=== PATIENT | male | born 1955 | race Caucasian/White ===

== ENCOUNTER 2018-03-08 15:03 | Observation (INO) ==
[2018-03-08] MEDS ORDERED: methylPREDNISolone 125 MG/2 ML VIAL IVP ONE (16:00)
[2018-03-08] MEDS ORDERED: Ipratropium/Albuterol Neb 3 ML IH ONE (16:00)
--- NOTE | 2018-03-08 16:00 | Emergency Department Note ---
Disposition Clinical Impression: Hypoxemia, Acute exacerbation of chronic obstructive airways disease, Community acquired pneumonia Disposition: Admitted As Inpatient Referrals: Malina Bauer MD [Primary Care Provider] - Forms: ED Satisfaction Letter General Adult HPI - General Chief complaint: ED Shortness of Breath/Dyspnea Stated complaint: WILMER Time Seen by Provider: 03/08/18 15:41 Source: patient, family - History of Present Illness HPI Narrative: 63-year-old male reports emergency department complaining of shortness of breath. Progressive dyspnea on exertion is noted, he has had discolored sputum and a significant cough. The patient has history of coronary disease with stents as well as COPD, he does not usually require oxygen. He denies any history of CHF DVT PE or cancer. No leg swelling or pain or syncope. No coughing up blood. There is no history of confusion or abdominal pain. No back pain. No trouble walking talking hearing seeing or speaking. The patient describes increasing shortness of breath with coughing over the last few days. On ED arrival, the patient's saturations are 86% on room air. At home he has no oxygen requirement. The patient denies any chest pain. Pain Scale: 0 - Related Data Home Medications Medication Instructions Recorded Confirmed Albuterol Inhaler 05/01/15 05/01/15 Previous Rx's Medication Instructions Recorded Benzonatate [Tessalon] 200 mg PO TID PRN #30 capsule 05/01/15 GuaiFENesin ER [Mucinex] 1,200 mg PO BID #20 tbbp.12hr 05/01/15 cephALEXin [Keflex] 500 mg PO QID #40 capsule 05/01/15 predniSONE [Prednisone] 60 mg PO DAILY 5 Days tablet 05/01/15 Allergies Allergy/AdvReac Type Severity Reaction Status Date / Time Sulfa (Sulfonamide Allergy Swelling Verified 12/18/15 10:55 Antibiotics) of Lip/Tongue/Throat All systems ED: reviewed and negative except as stated. Past Medical History - Past Medical History Medical history: Reports: COPD, coronary artery disease, hepatitis, hyperlipidemia, hypertension Surgical history: Reports: other Psychiatric history: Reports: no psych history - Social History Smoking Status: Current every day smoker Smokeless Tobacco Status: No Alcohol use: Reports: none Drug use: Reports: marijuana Physical Exam - General Limitations: no limitations General appearance: alert, in no apparent distress - Head Head exam: atraumatic, normocephalic, normal inspection - Eye Eye exam: Present: normal appearance, PERRL, EOMI - ENT ENT exam: normal exam, normal oropharynx, mucous membranes moist, TM's normal bilaterally, normal external ear exam - Neck Neck exam: Present: full ROM, trachea midline - Chest Chest inspection: Present: normal inspection, symmetric chest wall rise - Respiratory Respiratory exam: Present: wheezes, prolonged expiratory phase. Absent: respiratory distress - Cardiovascular Cardiovascular exam: Present: regular rate, normal rhythm, normal heart sounds - Abdominal Exam Abdominal exam: Present: soft, Non-Tender, normal bowel sounds. Absent: tenderness, distention, guarding, rebound, rigidity - Extremities Exam Extremities exam: Present: normal inspection, full ROM. Absent: tenderness, pedal edema, joint swelling, calf tenderness - Expanded Lower Extremity Exam Lower leg exam: Absent: Homans' sign Neurovascular/Tendon exam: Present: normal capillary refill. Absent: motor deficit, sensory deficit, tendon deficit, extremity cold to touch, pallor - Back Exam Back exam: Present: normal inspection, full ROM, CVA tenderness (R), CVA tenderness (L). Absent: tenderness, vertebral tenderness - Neurological Exam Neurological exam: Present: alert, oriented X3, CN II-XII intact. Absent: motor sensory deficit - Psychiatric Psychiatric exam: Present: normal affect, normal mood - Skin Skin exam: Present: warm, dry, intact, normal color. Absent: rash, cyanosis, d iaphoresis, erythema, pallor, mottled Course Vital Signs Temperature 97.9 F 03/08/18 15:05 Pulse Rate 62 03/08/18 15:05 Respiratory Rate 22 03/08/18 15:05 Blood Pressure 165/76 03/08/18 15:05 O2 Sat by Pulse Oximetry 86 03/08/18 15:05 Temperature 97.9 F 03/08/18 15:45 Pulse Rate 70 03/08/18 20:00 Respiratory Rate 20 03/08/18 20:00 Blood Pressure 143/97 03/08/18 20:00 O2 Sat by Pulse Oximetry 94 03/08/18 20:00 Oxygen Delivery Oxygen Delivery Nasal Cannula Medical Decision Making - MDM Narrative Medical decision making narrative: The patient has a history of COPD but does not usually require oxygen. His oxygen saturations in the emergency department when the 80s. Oxygen was supplied. He was evaluated and chest x-ray shows changes suggestive of pneumonia. The patient does not have an elevated lactate or white count, he does not appear to meet sepsis criteria. IV access was established. DuoNeb nebs were given as well as Solu-Medrol Levaquin. The patient desats when oxygen is removed into the 80s. Based on his history of lung disease, apparent hypoxemia requiring oxygen, and infiltrative change on the chest x-ray, I thought it be appropriate to the patient. The patient is agreeable. I discussed case with the hospitalist on-call who has excepted the patient to their care. Influenza testing negative. The patient denies any chest pain. He has no history of DVT. No history of DVT PE or cancer but describes a history of coronary stent, no history of CHF. Troponin negative EKG shows no acute changes. - Lab Data Lab results reviewed: Yes I reviewed the patient's lab results. Result diagrams: 03/08/18 15:54 03/08/18 15:54 Lab Results 03/08/18 03/08/18 03/08/18 Range/Units 15:54 15:54 15:54 WBC 9.7 (4.3-11.1) K/mcL RBC 4.90 (4.19-5.50) M/mcL Hgb 15.6 (12.9-16.9) g/dL Hct 45.2 (37.5-50.1) % MCV 92.2 (83.0-100.0) fL MCH 31.8 (28.0-33.3) pg MCHC 34.5 (31.6-35.5) g/dL RDW 13.5 (11.5-14.5) % Plt Count 138 L (140-400) K/mcL MPV 11.4 (9.4-12.4) fL Immature Gran % 0.3 (0-4) % Seg Neutrophils % 73.8 % Lymphocytes % 11.4 % Monocytes % 12.3 % Eosinophils % 1.9 % Basophils % 0.3 % Neutrophils # 7.2 (1.6-8.9) K/mcL Lymphocytes # 1.1 (0.6-4.6) K/mcL Monocytes # 1.2 (0.0-1.3) K/mcL Eosinophils # 0.2 (0.0-0.6) K/mcL Basophils # 0.0 (0.0-0.2) K/mcL PT (9.4-12.1) Seconds INR APTT (26.0-36.0) Seconds Sodium 137 (136-145) mEq/L Potassium 3.5 (3.5-5.1) mEq/L Chloride 98 (98-107) mEq/L Carbon Dioxide 29 (23-29) mEq/L BUN 19 (8-23) mg/dL Creatinine 0.80 (0.70-1.30) mg/dL Est GFR ( Amer) > 60 (> 60) Est GFR (Non-Af Amer) > 60 (> 60) BUN/Creatinine Ratio 24 (6-26) Glucose 89 (70-105) mg/dL Calculated Osmolality 286 (280-300) Lactic Acid 0.8 (0.5-2.2) mmol/L Calcium 9.9 (8.6-10.3) mg/dL Total Bilirubin 1.0 (0.3-1.0) mg/dL Direct Bilirubin 0.3 H (0.0-0.2) mg/dL Indirect Bilirubin 0.7 (0.0-1.2) mg/dL AST 28 (13-39) Units/L ALT 23 (7-52) Units/L Alkaline Phosphatase 121 H (34-104) Units/L Troponin I < 0.03 (< 0.04) ng/mL B-Natriuretic Peptide (Less than 100) pg/mL Serum Total Protein 7.8 (6.4-8.9) g/dL Albumin 4.2 (3.5-5.7) g/dL Globulin 3.6 H (2.4-3.5) g/dL Albumin/Globulin Ratio 1.2 (1.1-2.2) 03/08/18 03/08/18 Range/Units 15:54 15:54 WBC (4.3-11.1) K/mcL RBC (4.19-5.50) M/mcL Hgb (12.9-16.9) g/dL Hct (37.5-50.1) % MCV (83.0-100.0) fL MCH (28.0-33.3) pg MCHC (31.6-35.5) g/dL RDW (11.5-14.5) % Plt Count (140-400) K/mcL MPV (9.4-12.4) fL Immature Gran % (0-4) % Seg Neutrophils % % Lymphocytes % % Monocytes % % Eosinophils % % Basophils % % Neutrophils # (1.6-8.9) K/mcL Lymphocytes # (0.6-4.6) K/mcL Monocytes # (0.0-1.3) K/mcL Eosinophils # (0.0-0.6) K/mcL Basophils # (0.0-0.2) K/mcL PT 11.8 (9.4-12.1) Seconds INR 1.0 APTT 32.5 (26.0-36.0) Seconds Sodium (136-145) mEq/L Potassium (3.5-5.1) mEq/L Chloride (98-107) mEq/L Carbon Dioxide (23-29) mEq/L BUN (8-23) mg/dL Creatinine (0.70-1.30) mg/dL Est GFR ( Amer) (> 60) Est GFR (Non-Af Amer) (> 60) BUN/Creatinine Ratio (6-26) Glucose (70-105) mg/dL Calculated Osmolality (280-300) Lactic Acid (0.5-2.2) mmol/L Calcium (8.6-10.3) mg/dL Total Bilirubin (0.3-1.0) mg/dL Direct Bilirubin (0.0-0.2) mg/dL Indirect Bilirubin (0.0-1.2) mg/dL AST (13-39) Units/L ALT (7-52) Units/L Alkaline Phosphatase (34-104) Units/L Troponin I (< 0.04) ng/mL B-Natriuretic Peptide 144 H (Less than 100) pg/mL Serum Total Protein (6.4-8.9) g/dL Albumin (3.5-5.7) g/dL Globulin (2.4-3.5) g/dL Albumin/Globulin Ratio (1.1-2.2) - Radiology Data Radiology results reviewed: Yes I reviewed the patient's radiology results.
[2018-03-08 16:20] LABS: Basophils % 0.3 %; Eosinophils # 0.2 K/mcL (0.0-0.6); Eosinophils % 1.9 %; Hematocrit 45.2 % (37.5-50.1); Hemoglobin 15.6 g/dL (12.9-16.9); Immature Granulocytes % 0.3 % (0-4); Lymphocytes # 1.1 K/mcL (0.6-4.6); Lymphocytes % 11.4 %; Mean Corpuscular HGB Conc 34.5 g/dL (31.6-35.5); Mean Corpuscular Hemoglobin 31.8 pg (28.0-33.3); Mean Corpuscular Volume 92.2 fL (83.0-100.0); Mean Platelet Volume 11.4 fL (9.4-12.4); Monocytes # 1.2 K/mcL (0.0-1.3); Monocytes % 12.3 %; Neutrophils # 7.2 K/mcL (1.6-8.9); Platelet Count 138 K/mcL (140-400); Red Cell Distribution Width 13.5 % (11.5-14.5); Segmented Neutrophils % 73.8 %
[2018-03-08 16:27] LABS: Prothrombin Time 11.8 Seconds (9.4-12.1)
[2018-03-08 16:30] LABS: Activated Partial Thrombo Time 32.5 Seconds (26.0-36.0)
[2018-03-08 16:32] LABS: Troponin I < 0.03 ng/mL (< 0.04)
[2018-03-08 16:33] LABS: Alanine Aminotransferase 23 Units/L (7-52); Albumin 4.2 g/dL (3.5-5.7); Albumin/Globulin Ratio 1.2 (1.1-2.2); Alkaline Phosphatase 121 Units/L (34-104); Aspartate Amino Transferase 28 Units/L (13-39); BUN/Creatinine Ratio 24 (6-26); Bilirubin,Direct 0.3 mg/dL (0.0-0.2); Bilirubin,Indirect 0.7 mg/dL (0.0-1.2); Blood Urea Nitrogen 19 mg/dL (8-23); Calcium 9.9 mg/dL (8.6-10.3); Carbon Dioxide 29 mEq/L (23-29); Chloride 98 mEq/L (98-107); Globulin 3.6 g/dL (2.4-3.5); Glucose 89 mg/dL (70-105); Osmolality,Calculated 286 (280-300); Potassium 3.5 mEq/L (3.5-5.1); Sodium 137 mEq/L (136-145); Total Protein 7.8 g/dL (6.4-8.9); eGFR For Non-African Americans > 60 (> 60)
[2018-03-08] MEDS ORDERED: Levofloxacin 750 MG/150 ML 750 MG/150 ML BAG IVPB ONE (18:04)
[2018-03-08] MEDS: Nicotine 21 MG PATCH.TD24 TD SCH (20:55)
[2018-03-08] MEDS: *HR* Heparin 5,000 UNIT/ML VIAL SQ SCH (21:52)
[2018-03-08 21:53] LABS: ABG Base Excess 6 mEq/L (-2 to 3); ABG HCO3 31 mEq/L (21-27); ABG Oxygen Saturation 90 % (95-98); ABG PCO2 49 mmHg (35-45); ABG PH 7.41 pH Units (7.32-7.45); ABG PO2 60 mmHg (85-104); ABG TCO2 33 mEq/L (20-26)
--- NOTE | 2018-03-08 23:18 | Internal Med History&Physical ---
Date of Encounter: 03/08/18 Time of Encounter: 23:17 Internal Medicine - H&P: HPI Chief complaint: sob Admitted From: Home Plans for Post Hospital Care: Home History of present illness: Star Guallpa is a 63-year-old man who reports a history of COPD, hypertension and coronary artery disease with stent placement who comes to the emergency room complaining of increasing shortness of breath and dyspnea on exe rtion, cough productive of discolored sputum and chest discomfort. He denies a history of heart failure, DVT/PE and hemoptysis. No associated abdominal pain. No fever reported but did have some chills of recent. In the ER he was found to be hypoxic and required supplemental oxygen. His lab work was grossly unremarkable with negative influenza swab and was given nebulizer therapy as well as steroids. Chest x-ray is reviewed by me showed some mild patchy densities. He is admitted for further care. At this time he reports feeling much better and has no complaints. Past Med Surg Social Fam HX - Past Medical History Medical history: COPD, coronary artery disease, hepatitis, hyperlipidemia, hypertension Additional medical history: sleep apnea, fatigue, insomnia, hepatitis C, butts's esophagus Psychiatric history: no psych history - Past Surgical History Surgical History: other Additional surgical history: nap[place]on fundoplication, cardiac stent X 1 - Social History Smoking Status: Current every day smoker Packs per day: 1 Smokeless Tobacco Status: No Alcohol use: none Drug use: marijuana Internal Medicine - H&P: Meds Albuterol Inhaler 05/01/15 [History] Benzonatate [Tessalon] 200 mg PO TID PRN #30 capsule 05/01/15 [Rx] GuaiFENesin ER [Mucinex] 1,200 mg PO BID #20 tbbp.12hr 05/01/15 [Rx] cephALEXin [Keflex] 500 mg PO QID #40 capsule 05/01/15 [Rx] predniSONE [Prednisone] 60 mg PO DAILY 5 Days tablet 05/01/15 [Rx] Allergy/AdvReac Type Severity Reaction Status Date / Time Sulfa (Sulfonamide Allergy Swelling Verified 12/18/15 10:55 Antibiotics) of Lip/Tongue/Throat All Systems PM: A 10-system review of systems was performed and is negative for pertinent findings except as documented above in the HPI. Family History reviewed and found noncontributory. - Constitutional Vitals: Temp Pulse Resp BP Pulse Ox 98.3 F 68 17 146/75 92 03/08/18 21:26 03/08/18 21:26 03/08/18 21:26 03/08/18 21:26 03/08/18 21:26 Exam: Vitals: Reviewed General: Well-developed male sitting up in bed in no acute distress Skin: Warm and supple. HEENT: Moist mucous membranes. No conjunctivae pallor. Neck: No lymphadenopathy. No JVD. No carotid bruits. No palpable thyroid. Chest: Normal thoracic expansion. No wheezes, rales or rhonchi.. Heart: Normal S1 & S2; rhythmic. No rubs or murmurs. Abdomen: Non-distended, soft and non-tender to palpation. No peritoneal reaction. Extremities: No clubbing, cyanosis or edema. No calf tenderness. Normal distal pulses. Neurological: Awake, alert and oriented to person, place and time. No focal deficits. Psych: Affect appropriate. Internal Med - H&P Results - Labs CBC & Chem 7: 03/08/18 15:54 03/08/18 15:54 Labs: Short CBC 03/08/18 Range/Units 15:54 WBC 9.7 (4.3-11.1) K/mcL Hgb 15.6 (12.9-16.9) g/dL Hct 45.2 (37.5-50.1) % Plt Count 138 L (140-400) K/mcL Neutrophils # 7.2 (1.6-8.9) K/mcL BMP 03/08/18 15:54 Sodium 137 Potassium 3.5 Chloride 98 Carbon Dioxide 29 BUN 19 Creatinine 0.80 Glucose 89 Calcium 9.9 Cardiac Enzymes 03/08/18 Range/Units 15:54 Troponin I < 0.03 (< 0.04) ng/mL Liver Function 03/08/18 Range/Units 15:54 Total Bilirubin 1.0 (0.3-1.0) mg/dL Direct Bilirubin 0.3 H (0.0-0.2) mg/dL AST 28 (13-39) Units/L ALT 23 (7-52) Units/L Alkaline Phosphatase 121 H (34-104) Units/L Albumin 4.2 (3.5-5.7) g/dL - ABG Interpretation ABG results: 03/08/18 21:47 ABG pH 7.41 ABG pCO2 49 H ABG pO2 60 L ABG HCO3 31 H ABG Total CO2 33 H ABG O2 Saturation 90 L ABG Base Excess 6 H - Impressions ITS Impressions Chest X-Ray 03/08/18 15:16 IMPRESSION: Small patchy left basilar opacities, which could represent atelectasis or developing pneumonia. D/ / Ramone Russell MD / Ramone Russell MD Interpreting Provider: Ramone Russell MD - Assessment and plan (1) Acute exacerbation of chronic obstructive airways disease Current Visit: Yes Status: Acute Assessment and plan: Will place on standing nebulizer therapy. Continue steroids. Pulse oximetry and supplemental oxygen as needed. (2) Community acquired pneumonia Current Visit: Yes Status: Acute Assessment and plan: Will continue levofloxacin 500mg daily. Sputum culture ordered. Qualifiers: Laterality: left Lung location: unspecified part of lung Qualified Code(s): J18.9 - Pneumonia, unspecified organism (3) Hypoxemia Current Visit: Yes Status: Acute Assessment and plan: Secondary to COPD and PNA. Management as indicated above. (4) CAD (coronary artery disease) Current Visit: Yes Status: Acute Assessment and plan: Currently asymptomatic. Will continue home medications once reconciled. Qualifiers: Coronary Disease-Associated Artery/Lesion type: [place] artery [place] vs. transplanted heart: [place] heart Associated angina: without angina Qualified Code(s): I25.10 - Atherosclerotic heart disease of [place] coronary artery without angina pectoris (5) HTN (hypertension) Current Visit: Yes Status: Acute Assessment and plan: Currently well controlled. Will resume home oral agents once confirmed. Qualifiers: Hypertension type: essential hypertension Qualified Code(s): I10 - Essential (primary) hypertension (6) DVT prophylaxis Current Visit: Yes Status: Acute Assessment and plan: SubQ heparin ordered. - Time Spent With Patient Total time spent is greater than 50% in coordination of care (as documented) at patient's floor/unit and/or counseling patient: Greater than 35 minutes
[2018-03-08] MEDS: Ipratropium/Albuterol Neb 3 ML IH SCH (23:50)
[2018-03-09] MEDS: Ipratropium/Albuterol Neb 3 ML IH SCH ×6 (03:47→23:35)
[2018-03-09] MEDS: *HR* Heparin 5,000 UNIT/ML VIAL SQ SCH ×3 (06:55→21:33)
[2018-03-09] MEDS: Metoprolol 100 MG TABLET PO SCH ×2 (08:33→21:30)
[2018-03-09] MEDS: Nicotine 21 MG PATCH.TD24 TD SCH (08:33)
[2018-03-09] MEDS: amLODIPine 5 MG TABLET PO SCH (08:33)
[2018-03-09] MEDS: Lisinopril-HCTZ 20-12.5mg TABLET PO SCH (08:33)
[2018-03-09] MEDS ORDERED: predniSONE 20 MG TABLET PO SCH (09:00)
[2018-03-09] MEDS: MethylPREDNISolone 40 MG/ML VIAL IVP SCH ×2 (15:00→23:22)
[2018-03-09] MEDS: Levofloxacin 750 MG/150 ML 750 MG/150 ML BAG IVPB SCH (17:18)
--- NOTE | 2018-03-09 17:33 | Electrocardiograph Report ---
[address] [address] Test Date: 2018-03-08 Pat Name: Star Guallpa Department: 104 Room: 2A Gender: M [employer] Custodian: ZAKIYA : 1955 Requested By: Reema Mir Order Number: [id number] Reading MD: Orly Benavides Measurements Intervals [place] Rate: 56 P: 59 PA: 154 QRS: 62 QRSD: 89 T: 77 QT: 449 QTc: 440 Interpretive Statements SINUS BRADYCARDIA WITH OCCASIONAL SUPRAVENTRICULAR PREMATURE COMPLEXES Electronically Signed On 03-09-2018 17:32:02 EST by Orly Benavides
[2018-03-09] MEDS ORDERED: Levofloxacin 500 MG/100 ML 500 MG/100 ML BAG IVPB SCH (18:00)
--- NOTE | 2018-03-09 18:58 | Internal Med Progress Note ---
Hospitalist Progress Note - Encounter Date of Encounter: 03/09/18 Time of Encounter: 11:00 - Subjective Interval History: Patient presented with shortness of breath and cough secondary to COPD exacerbation with community acquired pneumonia. Patient with decreased airflow this morning in addition to expiratory wheezes so will escalate oral prednisone to IV Solu-Medrol and continue dual nebs and IV Levaquin. - Exam Vitals: Temp Pulse Resp BP Pulse Ox 98 F 74 20 125/63 91 03/09/18 16:40 03/09/18 16:40 03/09/18 16:40 03/09/18 16:40 03/09/18 16:40 Exam: Gen.: Nonacute distress, alert and oriented 3 ENT: Mucosal membranes moist Respiratory: Expiratory wheezes Cardiovascular: Normal S1 and S2 regular rate rhythm no murmurs rubs or gallops Abdomen: Soft, nontender and nondistended with positive bowel sounds Extremities: No lower extremity edema Skin: Normal color - Assessment and Plan (1) Acute exacerbation of chronic obstructive airways disease Current Visit: Yes Status: Acute Assessment and Plan: Patient presented with shortness of breath and cough secondary to COPD exacerbation with community acquired pneumonia. Patient with decreased airflow this morning in addition to expiratory wheezes so will escalate oral prednisone to IV Solu-Medrol and continue dual nebs and IV Levaquin. (2) Community acquired pneumonia Current Visit: Yes Status: Acute Assessment and Plan: Continue day 2 of IV ceftriaxone and IV azithromycin as above. (3) CAD (coronary artery disease) Current Visit: Yes Status: Acute Assessment and Plan: Continue home medications (4) HTN (hypertension) Current Visit: Yes Status: Acute Assessment and Plan: Continue home medications (5) DVT prophylaxis Current Visit: Yes Status: Acute Assessment and Plan: Subcutaneous heparin - Time Spent with Patient Total time spent is greater than 50% in coordination of care (as documented) at patient's floor/unit and/or counseling patient: Internal Medicine: Result - Labs CBC & Chem 7: 03/08/18 15:54 03/08/18 15:54 - ABG Interpretation ABG results: ABG ABG pH 7.41 pH Units (7.32-7.45) 03/08/18 21:47 ABG pCO2 49 mmHg (35-45) H 03/08/18 21:47 ABG pO2 60 mmHg (85-104) L 03/08/18 21:47 ABG O2 Saturation 90 % (95-98) L 03/08/18 21:47 PT/INR, D-dimer PT 11.8 Seconds (9.4-12.1) 03/08/18 15:54 Consult Discharge Plan - Plan Referrals: Malina Bauer MD [Primary Care Provider] - (2) Community acquired pneumonia Qualifiers: Laterality: left Lung location: unspecified part of lung Qualified Code(s): J18.9 - Pneumonia, unspecified organism (3) CAD (coronary artery disease) Qualifiers: Coronary Disease-Associated Artery/Lesion type: [place] artery [place] vs. transplanted heart: [place] heart Associated angina: without angina Qualified Code(s): I25.10 - Atherosclerotic heart disease of [place] coronary artery without angina pectoris (4) HTN (hypertension) Qualifiers: Hypertension type: essential hypertension Qualified Code(s): I10 - Essential (primary) hypertension
[2018-03-09] MEDS ORDERED: Acetaminophen 325 MG TABLET PO ONE (22:34)
[2018-03-10] MEDS: Ipratropium/Albuterol Neb 3 ML IH SCH ×6 (03:30→23:27)
[2018-03-10] MEDS: *HR* Heparin 5,000 UNIT/ML VIAL SQ SCH ×3 (03:57→23:18)
[2018-03-10] MEDS: Lisinopril-HCTZ 20-12.5mg TABLET PO SCH (07:59)
[2018-03-10] MEDS: Nicotine 21 MG PATCH.TD24 TD SCH (07:59)
[2018-03-10] MEDS: amLODIPine 5 MG TABLET PO SCH (07:59)
[2018-03-10] MEDS: Metoprolol 100 MG TABLET PO SCH ×2 (07:59→20:54)
[2018-03-10] MEDS: MethylPREDNISolone 40 MG/ML VIAL IVP SCH ×3 (08:00→23:18)
--- NOTE | 2018-03-10 09:42 | Internal Med Progress Note ---
Hospitalist Progress Note - Encounter Date of Encounter: 03/10/18 Time of Encounter: 11:00 - Subjective Interval History: Patient presented with shortness of breath and cough secondary to COPD exacerbation with community acquired pneumonia. Patient requiring less O2 supplementation this morning but not able to wean off. - Exam Vitals: Temp Pulse Resp BP Pulse Ox 97.7 F 79 18 128/69 92 03/10/18 07:25 03/10/18 07:25 03/10/18 07:25 03/10/18 07:25 03/10/18 07:25 Exam: Gen.: Nonacute distress, alert and oriented 3 ENT: Mucosal membranes moist Respiratory: Expiratory wheezes Cardiovascular: Normal S1 and S2 regular rate rhythm no murmurs rubs or gallops Abdomen: Soft, nontender and nondistended with positive bowel sounds Extremities: No lower extremity edema Skin: Normal color - Assessment and Plan (1) Acute exacerbation of chronic obstructive airways disease Current Visit: Yes Status: Acute Assessment and Plan: Patient presented with shortness of breath and cough secondary to COPD exacerbation with community acquired pneumonia. Continue IV Solu-Medrol and continue dual nebs and IV Levaquin. (2) Community acquired pneumonia Current Visit: Yes Status: Acute Assessment and Plan: Continue day 3 of IV Levaquin as above (3) CAD (coronary artery disease) Current Visit: Yes Status: Acute Assessment and Plan: Continue home medications (4) HTN (hypertension) Current Visit: Yes Status: Acute Assessment and Plan: Continue home medications DVT Prophylaxis: Subcutaneous heparin - Time Spent with Patient Total time spent is greater than 50% in coordination of care (as documented) at patient's floor/unit and/or counseling patient: Internal Medicine: Result - Labs CBC & Chem 7: 03/10/18 09:47 03/10/18 09:47 - ABG Interpretation ABG results: ABG ABG pH 7.41 pH Units (7.32-7.45) 03/08/18 21:47 ABG pCO2 49 mmHg (35-45) H 03/08/18 21:47 ABG pO2 60 mmHg (85-104) L 03/08/18 21:47 ABG O2 Saturation 90 % (95-98) L 03/08/18 21:47 PT/INR, D-dimer PT 11.8 Seconds (9.4-12.1) 03/08/18 15:54 Consult Discharge Plan - Plan Referrals: Malina Bauer MD [Primary Care Provider] - (2) Community acquired pneumonia Qualifiers: Laterality: left Lung location: unspecified part of lung Qualified Code(s): J18.9 - Pneumonia, unspecified organism (3) CAD (coronary artery disease) Qualifiers: Coronary Disease-Associated Artery/Lesion type: [place] artery [place] vs. [place] heart: [place] heart Associated angina: without angina Qualified Code(s): I25.10 - Atherosclerotic heart disease of [place] coronary artery without angina pectoris (4) HTN (hypertension) Qualifiers: Hypertension type: essential hypertension Qualified Code(s): I10 - Essential (primary) hypertension
[2018-03-10 10:19] LABS: Basophils % 0.1 %; Hemoglobin 14.3 g/dL (12.9-16.9); Immature Granulocytes % 0.4 % (0-4); Lymphocytes # 0.7 K/mcL (0.6-4.6); Lymphocytes % 4.8 %; Mean Corpuscular HGB Conc 33.3 g/dL (31.6-35.5); Mean Corpuscular Hemoglobin 31.7 pg (28.0-33.3); Mean Corpuscular Volume 95.3 fL (83.0-100.0); Mean Platelet Volume 11.4 fL (9.4-12.4); Monocytes # 0.7 K/mcL (0.0-1.3); Monocytes % 5.1 %; Platelet Count 131 K/mcL (140-400); Red Blood Count 4.51 M/mcL (4.19-5.50); Red Cell Distribution Width 13.3 % (11.5-14.5); Segmented Neutrophils % 89.6 %
[2018-03-10 10:27] LABS: BUN/Creatinine Ratio 29 (6-26); Blood Urea Nitrogen 32 mg/dL (8-23); Calcium 9.1 mg/dL (8.6-10.3); Carbon Dioxide 32 mEq/L (23-29); Chloride 102 mEq/L (98-107); Glucose 321 mg/dL (70-105); Osmolality,Calculated 309 (280-300); Potassium 3.8 mEq/L (3.5-5.1); Sodium 140 mEq/L (136-145); eGFR For Non-African Americans > 60 (> 60)
[2018-03-10] MEDS: Levofloxacin 750 MG/150 ML 750 MG/150 ML BAG IVPB SCH (17:48)
[2018-03-11] MEDS: Ipratropium/Albuterol Neb 3 ML IH SCH ×4 (03:28→15:52)
[2018-03-11] MEDS: *HR* Heparin 5,000 UNIT/ML VIAL SQ SCH ×2 (06:04→15:02)
[2018-03-11] MEDS ORDERED: levoFLOXacin 750 MG TABLET PO SCH (09:00)
[2018-03-11] MEDS: Metoprolol 100 MG TABLET PO SCH (09:40)
[2018-03-11] MEDS: Lisinopril-HCTZ 20-12.5mg TABLET PO SCH (09:40)
[2018-03-11] MEDS: MethylPREDNISolone 40 MG/ML VIAL IVP SCH ×2 (09:40→15:02)
[2018-03-11] MEDS: Nicotine 21 MG PATCH.TD24 TD SCH (09:41)
[2018-03-11] MEDS: amLODIPine 5 MG TABLET PO SCH (09:41)
[2018-03-11 10:40] LABS: Basophils % 0.2 %; Hematocrit 43.7 % (37.5-50.1); Hemoglobin 14.4 g/dL (12.9-16.9); Immature Granulocytes % 0.9 % (0-4); Lymphocytes # 0.8 K/mcL (0.6-4.6); Lymphocytes % 6.6 %; Mean Corpuscular Hemoglobin 32.1 pg (28.0-33.3); Mean Corpuscular Volume 97.3 fL (83.0-100.0); Mean Platelet Volume 11.8 fL (9.4-12.4); Monocytes # 0.7 K/mcL (0.0-1.3); Monocytes % 5.9 %; Neutrophils # 10.8 K/mcL (1.6-8.9); Platelet Count 134 K/mcL (140-400); Red Blood Count 4.49 M/mcL (4.19-5.50); Red Cell Distribution Width 13.1 % (11.5-14.5); Segmented Neutrophils % 86.4 %
[2018-03-11 11:01] VITALS: BP 126/76
--- NOTE | 2018-03-11 15:09 | Discharge Summary ---
- NOTES TO OUTPATIENT PROVIDER Notes to Outpatient Provider: none Orders not resulted at time of discharge: Pending orders 03/08/18 15:54 Culture,Blood [BC] Stat Date of Encounter: 03/11/18 Time of Encounter: 11:00 - Discharge Diagnosis (1) Acute exacerbation of chronic obstructive airways disease Priority: Primary Status: Acute (2) Community acquired pneumonia Priority: Primary Status: Acute Qualifiers: Laterality: left Lung location: unspecified part of lung Qualified Code(s): J18.9 - Pneumonia, unspecified organism (3) CAD (coronary artery disease) Priority: Secondary Status: Acute Qualifiers: Coronary Disease-Associated Artery/Lesion type: [place] artery [place] vs. transplanted heart: [place] heart Associated angina: without angina Qualified Code(s): I25.10 - Atherosclerotic heart disease of [place] coronary artery without angina pectoris (4) HTN (hypertension) Priority: Secondary Status: Acute Qualifiers: Hypertension type: essential hypertension Qualified Code(s): I10 - Essential (primary) hypertension Hospital course: Patient is a 63-year-old male with past medical history significant for COPD, hypertension and coronary artery disease with stent placement who comes to the emergency room complaining of increasing shortness of breath and dyspnea on exertion, cough productive of discolored sputum and chest discomfort. Patient admitted to the hospital for COPD exacerbation and continued acquired pneumonia. The patients hospital stay his symptoms improved on IV Solu-Medrol and IV Levaquin in addition to scheduled DuoNebs. Patient will be discharged to complete a 3 day course of Levaquin in addition to a steroid taper. - Time Spent with Patient Total time spent providing and/or coordinating discharge services: Less than 30 minutes - Discharge Medications Prescriptions: levoFLOXacin [Levaquin] 750 mg PO DAILY 3 Days #3 tablet Nicotine Patch [Nicoderm] 21 mg TD DAILY #30 patch.td24 predniSONE [PredniSONE] 10 mg PO DAILY #39 tablet Home Medications: Metoprolol [Lopressor] 100 mg PO BID 03/09/18 [History] Sertraline [Zoloft] 150 mg PO DAILY 03/09/18 [History] Simvastatin [Zocor] 40 mg PO HS 03/09/18 [History] amLODIPine [Norvasc] 10 mg PO DAILY 03/09/18 [History] Albuterol Sulfate [Ventolin Hfa] 2 puff IH Q6H PRN 03/10/18 [History] Aspirin [Lo-Dose Aspirin EC] 81 mg PO DAILY 03/10/18 [History] Clopidogrel [Plavix] 75 mg PO DAILY 03/10/18 [History] Lisinopril/Hydrochlorothiazide [Zestoretic 20-25 mg Tablet] 1 tab PO DAILY 03/10/18 [History] Nicotine Patch [Nicoderm] 21 mg TD DAILY #30 patch.td24 03/11/18 [Rx] levoFLOXacin [Levaquin] 750 mg PO DAILY 3 Days #3 tablet 03/11/18 [Rx] predniSONE [PredniSONE] 10 mg PO DAILY #39 tablet 03/11/18 [Rx] Allergies/Adverse Reactions: Allergy/AdvReac Type Severity Reaction Status Date / Time Sulfa (Sulfonamide Allergy Swelling Verified 12/18/15 10:55 Antibiotics) of Lip/Tongue/Throat Date of admission: 03/08/18 20:55 Primary care physician: Malina Bauer MD - Constitutional Vitals: Temp Pulse Resp BP Pulse Ox 97.8 F 81 18 126/76 94 03/11/18 11:00 03/11/18 11:00 03/11/18 11:00 03/11/18 11:00 03/11/18 11:00 Exam: Gen.: Nonacute distress, alert and oriented 3 Respiratory: Expiratory wheezes Skin: Normal color - Patient Status Disposition: Home, Self-Care - Discharge Instructions Instructions: Bronchiolitis (GEN), Chronic Obstructive Pulmonary Disease (DC) Follow Up With: Malina Bauer MD [Primary Care Provider] - 03/19/18 3:00 pm (Please follow up as schedule...)
== END 2018-03-11 17:09 | disposition home or self-care (01) ==
LOC: 2ANU 15:03 → EMEROOARM 15:03 → SUATTDRO 20:55 → 2ANU 21:24
PROVIDERS: ADMIT Internal Medicine; ATTEND Hospitalist

== ENCOUNTER 2019-05-15 18:38 | Inpatient (IN) ==
[2019-05-15] MEDS ORDERED: Acetaminophen 325 MG TABLET PO PRN (23:29)
[2019-05-15] MEDS ORDERED: Naloxone 0.4 MG/ML INJ IVP PRN (23:29)
[2019-05-15] MEDS ORDERED: Ondansetron 4 MG/2 ML VIAL IVP PRN (23:29)
[2019-05-16 00:42] LABS: Basophils % 0.1 %; Mean Platelet Volume 12.3 fL (9.4-12.4); Red Cell Distribution Width 14.1 % (11.5-14.5)
[2019-05-16 00:44] LABS: Hematocrit 38.6 % (37.5-50.1); Hemoglobin 12.2 g/dL (12.9-16.9); Immature Granulocytes % 0.9 % (0-4); Immature Platelets 6.2 % (1.1-6.1); Lymphocytes % 3.2 %; Mean Corpuscular HGB Conc 31.6 g/dL (31.6-35.5); Mean Corpuscular Hemoglobin 31.3 pg (28.0-33.3); Monocytes # 1.4 K/mcL (0.0-1.3); Segmented Neutrophils % 87.8 %; White Blood Count 17.1 K/mcL (4.3-11.1)
[2019-05-16 00:46] LABS: Lymphocytes # 0.6 K/mcL (0.6-4.6); Platelet Count 89 K/mcL (140-400)
[2019-05-16 00:50] LABS: VBG HCO3 30 mEq/L (21-27); VBG PCO2 44 mmHg (41-51); VBG PH 7.43 pH Units (7.32-7.42); VBG PO2 153 mmHg (25-50)
[2019-05-16 00:58] LABS: Red Cell Distribution Width 14.1 % (11.5-14.5)
[2019-05-16 01:00] LABS: Basophils % 0.1 %; Hematocrit 37.3 % (37.5-50.1); Hemoglobin 12.2 g/dL (12.9-16.9); Immature Granulocytes % 0.5 % (0-4); Immature Platelets 5.2 % (1.1-6.1); Lymphocytes # 0.6 K/mcL (0.6-4.6); Lymphocytes % 3.2 %; Mean Corpuscular HGB Conc 32.7 g/dL (31.6-35.5); Mean Corpuscular Hemoglobin 32.3 pg (28.0-33.3); Mean Corpuscular Volume 98.7 fL (83.0-100.0); Mean Platelet Volume 12.2 fL (9.4-12.4); Monocytes # 1.3 K/mcL (0.0-1.3); Monocytes % 7.5 %; Neutrophils # 15.6 K/mcL (1.6-8.9); Red Blood Count 3.78 M/mcL (4.19-5.50); Segmented Neutrophils % 88.7 %; White Blood Count 17.6 K/mcL (4.3-11.1)
[2019-05-16 01:01] LABS: Platelet Count 90 K/mcL (140-400)
[2019-05-16 01:06] LABS: BUN/Creatinine Ratio 24 (6-26); Blood Urea Nitrogen 25 mg/dL (8-23); Calcium 9.4 mg/dL (8.6-10.3); Carbon Dioxide 29 mEq/L (23-29); Chloride 108 mEq/L (98-107); Glucose 183 mg/dL (70-105); Magnesium 1.6 mg/dL (1.6-2.6); Osmolality,Calculated 309 (280-300); Potassium 3.7 mEq/L (3.5-5.1); Sodium 145 mEq/L (136-145); eGFR For African Americans > 60 (> 60); eGFR For Non-African Americans > 60 (> 60)
[2019-05-16 01:20] LABS: BUN/Creatinine Ratio 24 (6-26); Blood Urea Nitrogen 25 mg/dL (8-23); Calcium 9.3 mg/dL (8.6-10.3); Carbon Dioxide 29 mEq/L (23-29); Chloride 108 mEq/L (98-107); Glucose 170 mg/dL (70-105); Magnesium 1.7 mg/dL (1.6-2.6); Osmolality,Calculated 310 (280-300); Potassium 3.7 mEq/L (3.5-5.1); Sodium 146 mEq/L (136-145); eGFR For African Americans > 60 (> 60); eGFR For Non-African Americans > 60 (> 60)
[2019-05-16 01:26] LABS: Platelet Estimate Decreased (Normal)
[2019-05-16 02:26] LABS: Adenovirus Not Detected (Not Detect); Coronavirus 229E Not Detected (Not Detect); Coronavirus HKU1 Not Detected (Not Detect); Coronavirus NL63 Not Detected (Not Detect); Coronavirus OC43 Not Detected (Not Detect); Human Metapneumovirus Not Detected (Not Detect); Human Rhinovirus/Enterovirus Not Detected (Not Detect); Influenza A Subtype 2009 H1 Not Detected (Not Detect); Influenza B Not Detected (Not Detect); Parainfluenza Virus 1 Not Detected (Not Detect); Parainfluenza Virus 2 Not Detected (Not Detect); Parainfluenza Virus 3 Not Detected (Not Detect); Parainfluenza Virus 4 Not Detected (Not Detect)
[2019-05-16 02:27] LABS: Bordetella Pertussis Not Detected (Not Detect); Chlamydophila pneumoniae Not Detected (Not Detect); Mycoplasma pneumoniae Not Detected (Not Detect); Respiratory Syncytial Virus Not Detected (Not Detect)
[2019-05-16] MEDS ORDERED: Ipratropium/Albuterol Neb 3 ML IH PRN (04:27)
[2019-05-16] MEDS ORDERED: Lactulose Oral Soln 20 GM/30 ML UDC PO PRN (04:35)
[2019-05-16] MEDS ORDERED: 0.9 % Sodium Chloride 1,000 ML IVC SCH (04:45)
[2019-05-16] MEDS: *HR* Heparin 5,000 UNIT/ML VIAL SQ SCH ×3 (05:27→20:55)
[2019-05-16] MEDS: Aspirin Enteric Coated 81 MG Tablet PO SCH (07:32)
[2019-05-16] MEDS: Piperacillin/Tazobactam 3.375 GM in 0.9 % Sodium Chloride Mini Bag 100 ML IVPB SCH ×2 (07:32→15:32)
[2019-05-16] MEDS: Metoprolol 100 MG TABLET PO SCH ×2 (07:32→20:57)
[2019-05-16] MEDS: Budesonide Neb 0.5 MG/2 ML IH SCH ×2 (09:29→21:45)
[2019-05-16] MEDS: Azithromycin 500 MG in D5% in Water 250 ML IVPB SCH (11:26)
[2019-05-16] MEDS: Ipratropium/Albuterol Neb 3 ML IH SCH ×3 (11:41→21:45)
[2019-05-16] MEDS ORDERED: Aminoglycoside Consult 1 EACH MC ONE (14:44)
[2019-05-17] MEDS: Piperacillin/Tazobactam 3.375 GM in 0.9 % Sodium Chloride Mini Bag 100 ML IVPB SCH ×2 (00:33→08:58)
[2019-05-17] MEDS: Ipratropium/Albuterol Neb 3 ML IH SCH ×2 (04:21→11:16)
[2019-05-17] MEDS: *HR* Heparin 5,000 UNIT/ML VIAL SQ SCH (05:25)
[2019-05-17 06:51] LABS: Hematocrit 38.7 % (37.5-50.1); Immature Platelets 6.6 % (1.1-6.1); Mean Corpuscular Hemoglobin 30.9 pg (28.0-33.3); Mean Corpuscular Volume 99.7 fL (83.0-100.0); Mean Platelet Volume 12.1 fL (9.4-12.4); Red Blood Count 3.88 M/mcL (4.19-5.50); Red Cell Distribution Width 14.2 % (11.5-14.5); White Blood Count 9.4 K/mcL (4.3-11.1)
[2019-05-17 07:05] LABS: BUN/Creatinine Ratio 25 (6-26); Blood Urea Nitrogen 25 mg/dL (8-23); Calcium 8.7 mg/dL (8.6-10.3); Carbon Dioxide 29 mEq/L (23-29); Chloride 108 mEq/L (98-107); Glucose 129 mg/dL (70-105); Osmolality,Calculated 300 (280-300); Potassium 3.7 mEq/L (3.5-5.1); Sodium 142 mEq/L (136-145); eGFR For African Americans > 60 (> 60); eGFR For Non-African Americans > 60 (> 60)
[2019-05-17] MEDS: Metoprolol 100 MG TABLET PO SCH (09:00)
[2019-05-17] MEDS: Aspirin Enteric Coated 81 MG Tablet PO SCH (09:00)
[2019-05-17 11:08] VITALS: BP 187/96
[2019-05-17] MEDS: Budesonide Neb 0.5 MG/2 ML IH SCH (11:16)
[2019-05-17] MEDS: Azithromycin 500 MG in D5% in Water 250 ML IVPB SCH (12:57)
[2019-05-17] MEDS ORDERED: hydroCHLOROthiazide 25 MG TABLET PO SCH (13:00)
[2019-05-17] MEDS ORDERED: amLODIPine 5 MG TABLET PO SCH (13:00)
[2019-05-17] MEDS ORDERED: Lisinopril 20 MG TABLET PO SCH (13:00)
== END 2019-05-17 14:45 | disposition home or self-care (01) | DRG 720 ==
LOC: 2ANU → SUATTDRO 21:09
PROVIDERS: ADMIT Pharmacist; ATTEND Internal Medicine

== ENCOUNTER 2019-07-28 21:06 | Observation (INO) ==
[2019-07-28] MEDS ORDERED: 0.9 % Sodium Chloride 500 ML IVC ONE (21:33)
[2019-07-28 21:57] LABS: Basophils % 0.2 %; Eosinophils # 0.1 K/mcL (0.0-0.6); Eosinophils % 1.4 %; Hematocrit 35.6 % (37.5-50.1); Hemoglobin 11.2 g/dL (12.9-16.9); Immature Granulocytes % 0.5 % (0-4); Lymphocytes # 1.3 K/mcL (0.6-4.6); Lymphocytes % 13.2 %; Mean Corpuscular HGB Conc 31.5 g/dL (31.6-35.5); Mean Corpuscular Hemoglobin 30.4 pg (28.0-33.3); Mean Corpuscular Volume 96.7 fL (83.0-100.0); Monocytes # 0.8 K/mcL (0.0-1.3); Monocytes % 8.2 %; Neutrophils # 7.3 K/mcL (1.6-8.9); Platelet Count 149 K/mcL (140-400); Red Blood Count 3.68 M/mcL (4.19-5.50); Red Cell Distribution Width 14.3 % (11.5-14.5); Segmented Neutrophils % 76.5 %; White Blood Count 9.5 K/mcL (4.3-11.1)
[2019-07-28 22:09] LABS: INR 1.1; Prothrombin Time 12.3 Seconds (9.4-12.1)
[2019-07-28 22:12] LABS: Activated Partial Thrombo Time 38.5 Seconds (26.0-36.0)
[2019-07-28 22:19] LABS: Alanine Aminotransferase 37 Units/L (7-52); Albumin 4.1 g/dL (3.5-5.7); Albumin/Globulin Ratio 1.2 (1.1-2.2); Alkaline Phosphatase 103 Units/L (34-104); Aspartate Amino Transferase 55 Units/L (13-39); BUN/Creatinine Ratio 39 (6-26); Bilirubin,Direct 0.3 mg/dL (0.0-0.2); Bilirubin,Indirect 0.6 mg/dL (0.0-1.0); Bilirubin,Total 0.9 mg/dL (0.3-1.0); Blood Urea Nitrogen 51 mg/dL (8-23); Calcium 9.6 mg/dL (8.6-10.3); Carbon Dioxide 28 mEq/L (23-29); Chloride 101 mEq/L (98-107); Globulin 3.5 g/dL (2.4-3.5); Glucose 103 mg/dL (70-105); Osmolality,Calculated 308 (280-300); Potassium 3.3 mEq/L (3.5-5.1); Sodium 142 mEq/L (136-145); Total Protein 7.6 g/dL (6.4-8.9); Troponin I < 0.03 ng/mL (< 0.04); eGFR For African Americans > 60 (> 60); eGFR For Non-African Americans 55 (> 60)
[2019-07-28 22:27] LABS: Bilirubin,Urine Negative (Negative); Blood,Urine Negative (Negative); Clarity,Urine Clear (Clear); Color,Urine Yellow (Yellow); Glucose,Urine (UA) Normal (Normal); Ketones,Urine Trace mg/dL (Negative); Leukocyte Esterase,Urine Negative (Negative); Nitrite,Urine Negative (Negative); PH,Urine 5.5 pH Units (5.0-8.0); Protein,Urine 30 mg/dL (Neg-Trace); Specific Gravity,Urine 1.023 (1.010-1.025); Urobilinogen,Urine Normal (Normal)
[2019-07-28 22:29] LABS: Bacteria,Urine None Seen per hpf (None-Few); Hyaline Casts,Urine None Seen per lpf (None-Few); RBC,Urine 0-3 per hpf (0-3); Squamous Epithelial Cell,Urine Moderate per lpf (None-Few); WBC,Urine 0-3 per hpf (0-3)
[2019-07-29] MEDS ORDERED: Naloxone 0.4 MG/ML INJ IVP PRN (01:18)
[2019-07-29] MEDS ORDERED: Lactulose Oral Soln 20 GM/30 ML UDC PO PRN (01:46)
[2019-07-29 02:42] LABS: Basophils % 0.1 %; Eosinophils # 0.1 K/mcL (0.0-0.6); Eosinophils % 0.6 %; Hemoglobin 11.2 g/dL (12.9-16.9); Immature Granulocytes % 0.5 % (0-4); Lymphocytes % 10.4 %; Mean Platelet Volume 11.7 fL (9.4-12.4); Monocytes # 0.7 K/mcL (0.0-1.3); Monocytes % 7.8 %; Neutrophils # 7.5 K/mcL (1.6-8.9); Platelet Count 138 K/mcL (140-400); Red Blood Count 3.61 M/mcL (4.19-5.50); Red Cell Distribution Width 14.3 % (11.5-14.5); Segmented Neutrophils % 80.6 %; White Blood Count 9.3 K/mcL (4.3-11.1)
[2019-07-29 02:43] LABS: VBG HCO3 29 mEq/L (21-27); VBG PCO2 51 mmHg (41-51); VBG PH 7.36 pH Units (7.32-7.42); VBG PO2 58 mmHg (25-50)
[2019-07-29 03:01] LABS: Alanine Aminotransferase 35 Units/L (7-52); Albumin/Globulin Ratio 1.2 (1.1-2.2); Alkaline Phosphatase 99 Units/L (34-104); Aspartate Amino Transferase 54 Units/L (13-39); BUN/Creatinine Ratio 40 (6-26); Bilirubin,Total 0.9 mg/dL (0.3-1.0); Blood Urea Nitrogen 50 mg/dL (8-23); Calcium 9.4 mg/dL (8.6-10.3); Carbon Dioxide 27 mEq/L (23-29); Chloride 103 mEq/L (98-107); Globulin 3.3 g/dL (2.4-3.5); Glucose 110 mg/dL (70-105); Magnesium 1.9 mg/dL (1.6-2.6); Osmolality,Calculated 312 (280-300); Potassium 3.4 mEq/L (3.5-5.1); Sodium 144 mEq/L (136-145); Total Protein 7.3 g/dL (6.4-8.9); eGFR For African Americans > 60 (> 60); eGFR For Non-African Americans 58 (> 60)
[2019-07-29] MEDS: Tiotropium 18 MCG inhalation IH SCH (07:48)
[2019-07-29] MEDS: Aspirin Enteric Coated 81 MG Tablet PO SCH (08:34)
[2019-07-29] MEDS: amLODIPine 5 MG TABLET PO SCH (08:35)
[2019-07-29] MEDS ORDERED: Perflutren Lipid Microsphere 1.3 ML in 0.9 % Sodium Chloride 8.7 ML IVP ONE (12:35)
[2019-07-29] MEDS ORDERED: 0.9 % Sodium Chloride 500 ML IVC SCH (17:00)
[2019-07-29] MEDS ORDERED: *HR* Heparin 5,000 UNIT/ML VIAL SQ SCH (18:00)
[2019-07-29 20:24] LABS: Sodium, Urine 100.5 mEq/L
[2019-07-29 20:27] LABS: Amphetamine Screen,Urine Negative ng/mL (Cutoff=1000); Barbiturate Screen,Urine Negative ng/mL (Cutoff=200); Benzodiazepines Screen,Urine Positive ng/mL (Cutoff=200); Cannabinoid Screen,Urine Negative ng/mL (Cutoff = 50); Cocaine Screen,Urine Negative ng/mL (Cutoff= 300); Opiate Screen,Urine Negative ng/mL (Cutoff=300); Phencyclidine Screen,Urine Negative ng/mL (Cutoff=25)
[2019-07-30 06:40] LABS: Basophils % 0.1 %; Eosinophils % 0.4 %; Hematocrit 36.4 % (37.5-50.1); Hemoglobin 11.2 g/dL (12.9-16.9); Immature Granulocytes % 0.6 % (0-4); Lymphocytes # 0.9 K/mcL (0.6-4.6); Lymphocytes % 9.9 %; Mean Corpuscular HGB Conc 30.8 g/dL (31.6-35.5); Mean Corpuscular Volume 97.6 fL (83.0-100.0); Mean Platelet Volume 11.9 fL (9.4-12.4); Monocytes # 0.8 K/mcL (0.0-1.3); Monocytes % 8.7 %; Neutrophils # 7.3 K/mcL (1.6-8.9); Platelet Count 135 K/mcL (140-400); Red Blood Count 3.73 M/mcL (4.19-5.50); Red Cell Distribution Width 14.4 % (11.5-14.5); Segmented Neutrophils % 80.3 %; White Blood Count 9.1 K/mcL (4.3-11.1)
[2019-07-30 06:57] LABS: BUN/Creatinine Ratio 34 (6-26); Blood Urea Nitrogen 36 mg/dL (8-23); Calcium 9.4 mg/dL (8.6-10.3); Carbon Dioxide 27 mEq/L (23-29); Chloride 102 mEq/L (98-107); Glucose 133 mg/dL (70-105); Osmolality,Calculated 302 (280-300); Potassium 3.2 mEq/L (3.5-5.1); Sodium 141 mEq/L (136-145); eGFR For African Americans > 60 (> 60); eGFR For Non-African Americans > 60 (> 60)
[2019-07-30] MEDS: Tiotropium 18 MCG inhalation IH SCH (08:07)
[2019-07-30] MEDS: amLODIPine 5 MG TABLET PO SCH (08:36)
[2019-07-30] MEDS: Aspirin Enteric Coated 81 MG Tablet PO SCH (08:36)
[2019-07-30] MEDS ORDERED: 0.9 % Sodium Chloride 500 ML IVC SCH (17:30)
[2019-07-31 07:24] LABS: Eosinophils % 1.3 %; Hemoglobin 10.6 g/dL (12.9-16.9); Immature Granulocytes % 0.4 % (0-4)
[2019-07-31 07:26] LABS: Basophils % 0.3 %; Eosinophils # 0.1 K/mcL (0.0-0.6); Hematocrit 33.9 % (37.5-50.1); Immature Platelets 5.3 % (1.1-6.1); Lymphocytes # 0.8 K/mcL (0.6-4.6); Lymphocytes % 11.6 %; Mean Corpuscular HGB Conc 31.3 g/dL (31.6-35.5); Mean Corpuscular Hemoglobin 30.5 pg (28.0-33.3); Mean Corpuscular Volume 97.4 fL (83.0-100.0); Mean Platelet Volume 11.6 fL (9.4-12.4); Monocytes # 0.7 K/mcL (0.0-1.3); Monocytes % 9.4 %; Neutrophils # 5.5 K/mcL (1.6-8.9); Platelet Count 109 K/mcL (140-400); Red Blood Count 3.48 M/mcL (4.19-5.50); Red Cell Distribution Width 14.4 % (11.5-14.5); White Blood Count 7.2 K/mcL (4.3-11.1)
[2019-07-31 07:42] LABS: BUN/Creatinine Ratio 26 (6-26); Blood Urea Nitrogen 23 mg/dL (8-23); Calcium 8.9 mg/dL (8.6-10.3); Carbon Dioxide 32 mEq/L (23-29); Chloride 104 mEq/L (98-107); Glucose 127 mg/dL (70-105); Osmolality,Calculated 299 (280-300); Potassium 3.2 mEq/L (3.5-5.1); Sodium 142 mEq/L (136-145); eGFR For African Americans > 60 (> 60); eGFR For Non-African Americans > 60 (> 60)
[2019-07-31] MEDS: Aspirin Enteric Coated 81 MG Tablet PO SCH (07:58)
[2019-07-31] MEDS: amLODIPine 5 MG TABLET PO SCH (07:58)
[2019-07-31] MEDS: Tiotropium 18 MCG inhalation IH SCH (09:54)
[2019-07-31] MEDS ORDERED: *HR* Labetalol 20 MG/4 ML SYRINGE IVP ONE (23:08)
[2019-08-01] MEDS: amLODIPine 5 MG TABLET PO SCH (05:34)
[2019-08-01 07:45] LABS: Basophils % 0.2 %; Eosinophils # 0.1 K/mcL (0.0-0.6); Eosinophils % 1.4 %; Hematocrit 34.4 % (37.5-50.1); Immature Granulocytes % 0.9 % (0-4); Lymphocytes # 0.5 K/mcL (0.6-4.6); Lymphocytes % 8.3 %; Mean Corpuscular Hemoglobin 30.2 pg (28.0-33.3); Mean Corpuscular Volume 94.5 fL (83.0-100.0); Mean Platelet Volume 11.6 fL (9.4-12.4); Monocytes # 0.5 K/mcL (0.0-1.3); Monocytes % 9.2 %; Neutrophils # 4.7 K/mcL (1.6-8.9); Platelet Count 116 K/mcL (140-400); Red Blood Count 3.64 M/mcL (4.19-5.50); Red Cell Distribution Width 14.1 % (11.5-14.5); White Blood Count 5.9 K/mcL (4.3-11.1)
[2019-08-01 08:01] LABS: BUN/Creatinine Ratio 20 (6-26); Blood Urea Nitrogen 17 mg/dL (8-23); Calcium 9.3 mg/dL (8.6-10.3); Carbon Dioxide 31 mEq/L (23-29); Chloride 104 mEq/L (98-107); Glucose 113 mg/dL (70-105); Osmolality,Calculated 288 (280-300); Potassium 3.3 mEq/L (3.5-5.1); Sodium 138 mEq/L (136-145); eGFR For African Americans > 60 (> 60); eGFR For Non-African Americans > 60 (> 60)
[2019-08-01] MEDS: Tiotropium 18 MCG inhalation IH SCH (08:10)
[2019-08-01] MEDS: Aspirin Enteric Coated 81 MG Tablet PO SCH (08:13)
[2019-08-01] MEDS ORDERED: Potassium Chloride 20 MEQ, Lidocaine 1% 2 ML in 0.9 % Sodium Chloride 250 ML IVPB ONE (11:24)
[2019-08-01 14:58] VITALS: BP 152/78
== END 2019-08-01 19:01 | disposition home or self-care (01) ==
LOC: EMEROOARM 21:06 → 3BNU 21:06
PROVIDERS: ADMIT Student in an Organized Health Care Education/Training Program; ATTEND Student in an Organized Health Care Education/Training Program

== ENCOUNTER 2020-01-30 15:37 | Observation (INO) ==
[2020-01-30 16:32] LABS: Basophils % 0.2 %; Eosinophils # 0.2 K/mcL (0.0-0.6); Eosinophils % 1.6 %; Hematocrit 33.4 % (37.5-50.1); Hemoglobin 10.4 g/dL (12.9-16.9); Immature Granulocytes % 0.2 % (0-4); Lymphocytes # 0.9 K/mcL (0.6-4.6); Lymphocytes % 10.1 %; Mean Corpuscular HGB Conc 31.1 g/dL (31.6-35.5); Mean Corpuscular Hemoglobin 28.9 pg (28.0-33.3); Mean Corpuscular Volume 92.8 fL (83.0-100.0); Mean Platelet Volume 12.1 fL (9.4-12.4); Monocytes # 0.9 K/mcL (0.0-1.3); Monocytes % 9.9 %; Neutrophils # 7.1 K/mcL (1.6-8.9); Platelet Count 119 K/mcL (140-400); Red Cell Distribution Width 14.5 % (11.5-14.5); White Blood Count 9.1 K/mcL (4.3-11.1)
[2020-01-30 16:55] LABS: BUN/Creatinine Ratio 24 (6-26); Blood Urea Nitrogen 26 mg/dL (8-23); Calcium 9.6 mg/dL (8.6-10.3); Carbon Dioxide 31 mEq/L (23-29); Chloride 102 mEq/L (98-107); Glucose 120 mg/dL (70-105); Osmolality,Calculated 296 (280-300); Potassium 3.5 mEq/L (3.5-5.1); Sodium 140 mEq/L (136-145); eGFR For African Americans > 60 (> 60); eGFR For Non-African Americans > 60 (> 60)
[2020-01-30 16:56] LABS: Troponin I 0.03 ng/mL (< 0.04)
[2020-01-30] MEDS ORDERED: Ipratropium/Albuterol Neb 3 ML IH ONE (17:55)
[2020-01-30] MEDS ORDERED: 0.9 % Sodium Chloride 1,000 ML IVC ONE (17:55)
[2020-01-30] MEDS ORDERED: methylPREDNISolone 125 MG/2 ML VIAL IVP ONE (17:55)
[2020-01-30] MEDS ORDERED: cefTRIAXone 1,000 MG in Water for inj. (sterile) 10 ML IVP ONE (18:01)
[2020-01-30] MEDS ORDERED: Furosemide 40 MG/4 ML VIAL IVP ONE (18:01)
[2020-01-30] MEDS ORDERED: Azithromycin 500 MG in 0.9 % Sodium Chloride 250 ML IVPB ONE (18:01)
[2020-01-30] MEDS ORDERED: Isovue-370 500 ML BOTTLE IVP ONE (18:08)
[2020-01-30 18:36] LABS: INR 1.1; Prothrombin Time 12.6 Seconds (9.4-12.1)
[2020-01-30 18:39] LABS: Activated Partial Thrombo Time 35.9 Seconds (26.0-36.0)
[2020-01-30 18:44] LABS: Ethanol < 10 mg/dL (Less than 10)
[2020-01-30 18:45] LABS: VBG HCO3 30 mEq/L (21-27); VBG PCO2 49 mmHg (41-51); VBG PO2 163 mmHg (25-50)
[2020-01-30 19:50] LABS: Bilirubin,Urine Negative (Negative); Blood,Urine Negative (Negative); Clarity,Urine Clear (Clear); Color,Urine Colorless (Yellow); Glucose,Urine (UA) Normal (Normal); Ketones,Urine Negative (Negative); Leukocyte Esterase,Urine Negative (Negative); Nitrite,Urine Negative (Negative); PH,Urine 6.5 pH Units (5.0-8.0); Protein,Urine Negative (Neg-Trace); Specific Gravity,Urine 1.012 (1.010-1.025); Urobilinogen,Urine Normal (Normal)
[2020-01-30 20:48] LABS: Amphetamine Screen,Urine Negative ng/mL (Cutoff=1000); Barbiturate Screen,Urine Negative ng/mL (Cutoff=200); Benzodiazepines Screen,Urine Negative ng/mL (Cutoff=200); Cannabinoid Screen,Urine Positive ng/mL (Cutoff = 50); Cocaine Screen,Urine Negative ng/mL (Cutoff= 300); Opiate Screen,Urine Positive ng/mL (Cutoff=300); Phencyclidine Screen,Urine Negative ng/mL (Cutoff=25)
[2020-01-30] MEDS ORDERED: Ondansetron 4 MG/2 ML VIAL IVP PRN (21:46)
[2020-01-30] MEDS ORDERED: Naloxone 0.4 MG/ML INJ IVP PRN (21:46)
[2020-01-30] MEDS ORDERED: Acetaminophen 325 MG TABLET PO PRN (21:46)
[2020-01-30] MEDS ORDERED: Ipratropium/Albuterol Neb 3 ML IH PRN (21:47)
[2020-01-30] MEDS: Ipratropium/Albuterol Neb 3 ML IH SCH (23:36)
[2020-01-30] MEDS: Nicotine 21 MG PATCH.TD24 TD SCH (23:48)
[2020-01-30] MEDS: Metoprolol 100 MG TABLET PO SCH (23:48)
[2020-01-30] MEDS: Lactulose Oral Soln 20 GM/30 ML UDC PO SCH (23:48)
[2020-01-31 01:38] LABS: Basophils % 0.1 %; Eosinophils % 0.1 %; Hematocrit 32.2 % (37.5-50.1); Hemoglobin 9.8 g/dL (12.9-16.9); Immature Granulocytes % 0.4 % (0-4); Lymphocytes # 0.4 K/mcL (0.6-4.6); Lymphocytes % 5.8 %; Mean Corpuscular HGB Conc 30.4 g/dL (31.6-35.5); Mean Corpuscular Hemoglobin 27.8 pg (28.0-33.3); Mean Corpuscular Volume 91.2 fL (83.0-100.0); Mean Platelet Volume 12.3 fL (9.4-12.4); Monocytes # 0.1 K/mcL (0.0-1.3); Monocytes % 1.4 %; Neutrophils # 6.8 K/mcL (1.6-8.9); Platelet Count 110 K/mcL (140-400); Red Blood Count 3.53 M/mcL (4.19-5.50); Red Cell Distribution Width 14.5 % (11.5-14.5); Segmented Neutrophils % 92.2 %; White Blood Count 7.4 K/mcL (4.3-11.1)
[2020-01-31 01:47] LABS: BUN/Creatinine Ratio 22 (6-26); Blood Urea Nitrogen 25 mg/dL (8-23); Carbon Dioxide 30 mEq/L (23-29); Chloride 100 mEq/L (98-107); Glucose 194 mg/dL (70-105); Magnesium 1.8 mg/dL (1.6-2.6); Osmolality,Calculated 300 (280-300); Potassium 3.2 mEq/L (3.5-5.1); Sodium 140 mEq/L (136-145); eGFR For African Americans > 60 (> 60); eGFR For Non-African Americans > 60 (> 60)
[2020-01-31] MEDS: Ipratropium/Albuterol Neb 3 ML IH SCH ×4 (03:35→21:39)
[2020-01-31] MEDS: *HR* Enoxaparin 40 MG/0.4 ML SYRINGE SQ SCH (06:10)
[2020-01-31] MEDS: Lactulose Oral Soln 20 GM/30 ML UDC PO SCH ×3 (08:09→20:11)
[2020-01-31] MEDS: Lisinopril-HCTZ 20-12.5mg TABLET PO SCH (08:10)
[2020-01-31] MEDS: Metoprolol 100 MG TABLET PO SCH ×2 (08:10→20:11)
[2020-01-31] MEDS ORDERED: MethylPREDNISolone 40 MG/ML VIAL IVP SCH (09:00)
[2020-01-31] MEDS ORDERED: Dextrose Gel 15 GM/37.5 ML TUBE PO PRN ×2 (09:12)
[2020-01-31] MEDS ORDERED: *HR* Dextrose 50 % in Water (Vial) 50 ML VIAL IVP PRN (09:12)
[2020-01-31] MEDS ORDERED: D5% in Water 1,000 ML IVC PRN (09:12)
[2020-01-31] MEDS: Insulin LISPRO 300 UNITS/3 ML VIAL SQ SCH ×4 (09:34→20:11)
[2020-01-31 09:36] LABS: Estimated Average Glucose 163 mg/dl
[2020-01-31] MEDS: Azithromycin 500 MG in 0.9 % Sodium Chloride 250 ML IVPB SCH (09:39)
[2020-01-31 10:42] LABS: Adenovirus Not Detected (Not Detect); Bordetella Pertussis Not Detected (Not Detect); Chlamydophila pneumoniae Not Detected (Not Detect); Coronavirus 229E Not Detected (Not Detect); Coronavirus HKU1 Not Detected (Not Detect); Coronavirus NL63 Not Detected (Not Detect); Coronavirus OC43 Not Detected (Not Detect); Human Metapneumovirus Not Detected (Not Detect); Human Rhinovirus/Enterovirus Not Detected (Not Detect); Influenza A Subtype 2009 H1 Not Detected (Not Detect); Influenza B Not Detected (Not Detect); Mycoplasma pneumoniae Not Detected (Not Detect); Parainfluenza Virus 1 Not Detected (Not Detect); Parainfluenza Virus 2 Not Detected (Not Detect); Parainfluenza Virus 3 Not Detected (Not Detect); Parainfluenza Virus 4 Not Detected (Not Detect); Respiratory Syncytial Virus Not Detected (Not Detect); SARS-CoV-2 Not Detected (Not Detect)
[2020-01-31] MEDS: Tiotropium 18 MCG inhalation IH SCH (11:13)
[2020-01-31] MEDS: Nicotine 21 MG PATCH.TD24 TD SCH (22:33)
[2020-02-01 01:16] LABS: Basophils % 0.1 %; Eosinophils % 0.1 %; Lymphocytes % 6.8 %; Platelet Count 117 K/mcL (140-400)
[2020-02-01 01:18] LABS: Hematocrit 31.5 % (37.5-50.1); Hemoglobin 9.5 g/dL (12.9-16.9); Immature Granulocytes % 0.4 % (0-4); Lymphocytes # 0.8 K/mcL (0.6-4.6); Mean Corpuscular HGB Conc 30.2 g/dL (31.6-35.5); Mean Corpuscular Hemoglobin 28.5 pg (28.0-33.3); Mean Corpuscular Volume 94.6 fL (83.0-100.0); Mean Platelet Volume 12.2 fL (9.4-12.4); Monocytes # 1.3 K/mcL (0.0-1.3); Monocytes % 10.9 %; Neutrophils # 9.8 K/mcL (1.6-8.9); Red Blood Count 3.33 M/mcL (4.19-5.50); Red Cell Distribution Width 14.5 % (11.5-14.5); Segmented Neutrophils % 81.7 %
[2020-02-01 01:41] LABS: Calcium 8.8 mg/dL (8.6-10.3); Magnesium 2.3 mg/dL (1.6-2.6); Phosphorous 4.6 mg/dL (2.7-4.5); Potassium 3.7 mEq/L (3.5-5.1)
[2020-02-01 02:00] LABS: Folate 8.7 ng/mL (3.0-16.0)
[2020-02-01] MEDS: Ipratropium/Albuterol Neb 3 ML IH SCH ×4 (04:33→21:53)
[2020-02-01] MEDS: *HR* Enoxaparin 40 MG/0.4 ML SYRINGE SQ SCH (05:10)
[2020-02-01] MEDS: Lactulose Oral Soln 20 GM/30 ML UDC PO SCH ×3 (08:32→22:25)
[2020-02-01] MEDS: Metoprolol 100 MG TABLET PO SCH (08:32)
[2020-02-01] MEDS: predniSONE 20 MG TABLET PO SCH (08:32)
[2020-02-01] MEDS: Insulin LISPRO 300 UNITS/3 ML VIAL SQ SCH ×4 (08:35→22:25)
[2020-02-01] MEDS ORDERED: Iron Sucrose Complex 400 MG in 0.9 % Sodium Chloride 250 ML IVPB ONE (08:45)
[2020-02-01] MEDS: Lisinopril-HCTZ 20-12.5mg TABLET PO SCH (08:50)
[2020-02-01] MEDS: Azithromycin 500 MG in 0.9 % Sodium Chloride 250 ML IVPB SCH (08:51)
[2020-02-01] MEDS: Budesonide/Formoterol 160/4.5 1 PUFF INH IH SCH ×2 (10:10→21:53)
[2020-02-01] MEDS: Aspirin Enteric Coated 81 MG Tablet PO SCH (10:12)
[2020-02-01] MEDS: Tiotropium 18 MCG inhalation IH SCH (10:13)
[2020-02-01] MEDS ORDERED: 0.9 % Sodium Chloride 1,000 ML IVC SCH (10:30)
[2020-02-01] MEDS: Sennosides/Docusate Sodium TABLET PO SCH (22:24)
[2020-02-01] MEDS: Nicotine 21 MG PATCH.TD24 TD SCH (22:25)
[2020-02-02] MEDS: Ipratropium/Albuterol Neb 3 ML IH SCH ×2 (03:18→09:52)
[2020-02-02] MEDS: *HR* Enoxaparin 40 MG/0.4 ML SYRINGE SQ SCH (05:57)
[2020-02-02] MEDS: Insulin LISPRO 300 UNITS/3 ML VIAL SQ SCH ×2 (09:11→11:46)
[2020-02-02] MEDS: Sennosides/Docusate Sodium TABLET PO SCH (09:31)
[2020-02-02] MEDS: Aspirin Enteric Coated 81 MG Tablet PO SCH (09:32)
[2020-02-02] MEDS: predniSONE 20 MG TABLET PO SCH (09:32)
[2020-02-02] MEDS: Lactulose Oral Soln 20 GM/30 ML UDC PO SCH (09:32)
[2020-02-02] MEDS: Tiotropium 18 MCG inhalation IH SCH (09:50)
[2020-02-02] MEDS: Budesonide/Formoterol 160/4.5 1 PUFF INH IH SCH (09:51)
[2020-02-02 10:18] LABS: Basophils % 0.2 %; Eosinophils % 0.5 %; Hematocrit 31.2 % (37.5-50.1); Hemoglobin 9.7 g/dL (12.9-16.9); Immature Granulocytes % 0.3 % (0-4); Lymphocytes # 0.8 K/mcL (0.6-4.6); Lymphocytes % 13.7 %; Mean Corpuscular HGB Conc 31.1 g/dL (31.6-35.5); Mean Corpuscular Hemoglobin 29.3 pg (28.0-33.3); Mean Corpuscular Volume 94.3 fL (83.0-100.0); Monocytes # 0.6 K/mcL (0.0-1.3); Monocytes % 9.5 %; Neutrophils # 4.7 K/mcL (1.6-8.9); Platelet Count 103 K/mcL (140-400); Red Blood Count 3.31 M/mcL (4.19-5.50); Red Cell Distribution Width 14.4 % (11.5-14.5); Segmented Neutrophils % 75.8 %; White Blood Count 6.1 K/mcL (4.3-11.1)
[2020-02-02 10:29] VITALS: BP 121/56
[2020-02-02 10:38] LABS: BUN/Creatinine Ratio 28 (6-26); Blood Urea Nitrogen 32 mg/dL (8-23); Calcium 8.6 mg/dL (8.6-10.3); Carbon Dioxide 33 mEq/L (23-29); Chloride 102 mEq/L (98-107); Glucose 149 mg/dL (70-105); Osmolality,Calculated 302 (280-300); Phosphorous 2.5 mg/dL (2.7-4.5); Potassium 3.3 mEq/L (3.5-5.1); Sodium 141 mEq/L (136-145); eGFR For African Americans > 60 (> 60); eGFR For Non-African Americans > 60 (> 60)
[2020-02-02] MEDS: Azithromycin 500 MG in 0.9 % Sodium Chloride 250 ML IVPB SCH (11:40)
== END 2020-02-02 13:11 | disposition home or self-care (01) ==
LOC: 3BNU 15:37 → EMEROOARM 15:37 → SUATTDRO 21:20 → 3BNU 22:01
PROVIDERS: ADMIT Student in an Organized Health Care Education/Training Program; ATTEND Internal Medicine

== ENCOUNTER 2020-04-20 01:30 | Inpatient (IN) ==
[2020-04-20] MEDS ORDERED: Naloxone 0.4 MG/ML INJ IVP PRN (05:22)
[2020-04-20] MEDS ORDERED: Ondansetron 4 MG/2 ML VIAL IVP PRN (05:22)
[2020-04-20] MEDS ORDERED: Octreotide 50 MCG/ML INJ IVP ONE (06:19)
[2020-04-20] MEDS ORDERED: Furosemide 40 MG/4 ML VIAL IVP ONE ×2 (06:22)
[2020-04-20] MEDS ORDERED: Ipratropium/Albuterol Neb 3 ML IH PRN (06:23)
[2020-04-20] MEDS ORDERED: Nitroglycerin 0.4 MG TAB.SUBL SL PRN (06:46)
[2020-04-20] MEDS: cefTRIAXone 1,000 MG in 0.9 % Sodium Chloride Mini Bag 100 ML IVPB SCH (07:48)
[2020-04-20] MEDS: Octreotide 400 MCG in 0.9 % Sodium Chloride 100 ML IVC SCH (08:02)
[2020-04-20] MEDS ORDERED: Perflutren Lipid Microsphere 1.3 ML in 0.9 % Sodium Chloride 8.7 ML IVP PRN (08:11)
[2020-04-20] MEDS: Pantoprazole 40 MG VIAL IVP SCH ×2 (08:16→17:11)
[2020-04-20] MEDS ORDERED: Lidocaine -MPF 2% 2 ML VIAL ONE (12:11)
[2020-04-20] MEDS ORDERED: *HR* Propofol 200 MG/20 ML VIAL IVP ONE (12:11)
[2020-04-20] MEDS ORDERED: *HR* Midazolam HCl 2 MG/2 ML VIAL ONE (12:59)
[2020-04-20] MEDS ORDERED: Albuterol 2.5 MG/3 ML NEBULIZER IH ONE (13:05)
[2020-04-20] MEDS ORDERED: *HR* Metoprolol 5 MG/5 ML VIAL IVP ONE (13:06)
[2020-04-20] MEDS ORDERED: Albuterol 2.5 MG/3 ML NEBULIZER ONE (13:10)
[2020-04-20 14:38] LABS: INR 1.1
[2020-04-20 14:40] LABS: Activated Partial Thrombo Time 31.4 Seconds (26.0-36.0); Basophils % 0.2 %; Eosinophils # 0.1 K/mcL (0.0-0.6); Eosinophils % 0.9 %; Hematocrit 26.9 % (37.5-50.1); Hemoglobin 8.1 g/dL (12.9-16.9); Immature Granulocytes % 0.4 % (0-4); Lymphocytes # 0.5 K/mcL (0.6-4.6); Lymphocytes % 4.1 %; Mean Corpuscular HGB Conc 30.1 g/dL (31.6-35.5); Mean Corpuscular Hemoglobin 27.2 pg (28.0-33.3); Mean Corpuscular Volume 90.3 fL (83.0-100.0); Mean Platelet Volume 12.5 fL (9.4-12.4); Monocytes # 1.2 K/mcL (0.0-1.3); Monocytes % 9.8 %; Nucleated Red Blood Cells 0.2 /100 WBC (0); Platelet Count 108 K/mcL (140-400); Red Blood Count 2.98 M/mcL (4.19-5.50); Red Cell Distribution Width 15.3 % (11.5-14.5); Segmented Neutrophils % 84.6 %; White Blood Count 11.8 K/mcL (4.3-11.1)
[2020-04-20 14:44] LABS: % Iron Saturation 4 % (20-55); Iron 23 mcg/dL (65-175); Transferrin 428 mg/dL (203-362)
[2020-04-20 14:48] LABS: Alanine Aminotransferase 20 Units/L (7-52); Albumin 3.6 g/dL (3.5-5.7); Albumin/Globulin Ratio 1.1 (1.1-2.2); Alkaline Phosphatase 106 Units/L (34-104); Aspartate Amino Transferase 33 Units/L (13-39); BUN/Creatinine Ratio 20 (6-26); Bilirubin,Total 0.6 mg/dL (0.3-1.0); Blood Urea Nitrogen 23 mg/dL (8-23); Calcium 8.2 mg/dL (8.6-10.3); Carbon Dioxide 27 mEq/L (23-29); Chloride 106 mEq/L (98-107); Chol/HDL Ratio 2.6 (0-4.9); Cholesterol 112 mg/dL (< 200); Globulin 3.2 g/dL (2.4-3.5); Glucose 158 mg/dL (70-105); HDL Cholesterol 43 mg/dL (40-59); LDL Cholesterol,Calculated 53 mg/dL (< 100); Osmolality,Calculated 297 (280-300); Potassium 3.5 mEq/L (3.5-5.1); Sodium 140 mEq/L (136-145); Total Protein 6.8 g/dL (6.4-8.9); Triglycerides 79 mg/dL (< 150); Troponin I 0.81 ng/mL (< 0.04); eGFR For African Americans > 60 (> 60); eGFR For Non-African Americans > 60 (> 60)
[2020-04-20 15:03] LABS: Ferritin 11 ng/mL (20-250)
[2020-04-20] MEDS: Budesonide/Formoterol 160/4.5 1 PUFF INH IH SCH (19:59)
[2020-04-21] MEDS: Octreotide 400 MCG in 0.9 % Sodium Chloride 100 ML IVC SCH (00:56)
[2020-04-21 03:19] LABS: Basophils % 0.2 %; Eosinophils # 0.1 K/mcL (0.0-0.6); Eosinophils % 0.4 %; Hematocrit 27.7 % (37.5-50.1); Hemoglobin 8.2 g/dL (12.9-16.9); Immature Granulocytes % 0.6 % (0-4); Lymphocytes # 0.9 K/mcL (0.6-4.6); Lymphocytes % 7.2 %; Mean Corpuscular HGB Conc 29.6 g/dL (31.6-35.5); Mean Corpuscular Hemoglobin 26.8 pg (28.0-33.3); Mean Corpuscular Volume 90.5 fL (83.0-100.0); Mean Platelet Volume 12.6 fL (9.4-12.4); Monocytes # 1.4 K/mcL (0.0-1.3); Monocytes % 11.3 %; Neutrophils # 9.8 K/mcL (1.6-8.9); Platelet Count 109 K/mcL (140-400); Red Blood Count 3.06 M/mcL (4.19-5.50); Red Cell Distribution Width 15.5 % (11.5-14.5); Segmented Neutrophils % 80.3 %; White Blood Count 12.2 K/mcL (4.3-11.1)
[2020-04-21 03:35] LABS: BUN/Creatinine Ratio 21 (6-26); Blood Urea Nitrogen 26 mg/dL (8-23); Calcium 8.4 mg/dL (8.6-10.3); Carbon Dioxide 28 mEq/L (23-29); Chloride 101 mEq/L (98-107); Glucose 150 mg/dL (70-105); Osmolality,Calculated 292 (280-300); Potassium 3.6 mEq/L (3.5-5.1); Sodium 137 mEq/L (136-145); eGFR For African Americans > 60 (> 60); eGFR For Non-African Americans 59 (> 60)
[2020-04-21] MEDS ORDERED: *HR* LORazepam 2 MG/ML VIAL IVP ONE (04:04)
[2020-04-21] MEDS: Pantoprazole 40 MG VIAL IVP SCH ×2 (04:51→16:45)
[2020-04-21] MEDS: cefTRIAXone 1,000 MG in 0.9 % Sodium Chloride Mini Bag 100 ML IVPB SCH (05:03)
[2020-04-21] MEDS: Budesonide/Formoterol 160/4.5 1 PUFF INH IH SCH ×2 (08:02→23:23)
[2020-04-21] MEDS: Tiotropium 10 INH DOSE IH SCH (08:02)
[2020-04-21] MEDS: Furosemide 20 MG/2 ML VIAL IVP SCH ×2 (10:33→20:08)
[2020-04-21] MEDS: Metoprolol XL (24 HR) Succ 25 MG TAB.ER.24H PO SCH (17:50)
[2020-04-21] MEDS: QUEtiapine Fumarate 25 MG TABLET PO SCH (20:08)
[2020-04-22 01:15] LABS: Basophils % 0.1 %; Hemoglobin 7.3 g/dL (12.9-16.9)
[2020-04-22 01:17] LABS: Eosinophils % 0.4 %; Immature Granulocytes % 0.4 % (0-4); Immature Platelets 7.8 % (1.1-6.1); Lymphocytes # 0.6 K/mcL (0.6-4.6); Lymphocytes % 6.9 %; Mean Corpuscular HGB Conc 30.4 g/dL (31.6-35.5); Mean Corpuscular Hemoglobin 27.8 pg (28.0-33.3); Mean Corpuscular Volume 91.3 fL (83.0-100.0); Mean Platelet Volume 12.5 fL (9.4-12.4); Monocytes # 0.9 K/mcL (0.0-1.3); Monocytes % 11.1 %; Neutrophils # 6.7 K/mcL (1.6-8.9); Red Blood Count 2.63 M/mcL (4.19-5.50); Red Cell Distribution Width 15.5 % (11.5-14.5); Segmented Neutrophils % 81.1 %; White Blood Count 8.2 K/mcL (4.3-11.1)
[2020-04-22 01:21] LABS: Platelet Count 90 K/mcL (140-400)
[2020-04-22 01:37] LABS: BUN/Creatinine Ratio 26 (6-26); Blood Urea Nitrogen 28 mg/dL (8-23); Calcium 8.3 mg/dL (8.6-10.3); Carbon Dioxide 30 mEq/L (23-29); Chloride 101 mEq/L (98-107); Glucose 133 mg/dL (70-105); Osmolality,Calculated 293 (280-300); Potassium 3.3 mEq/L (3.5-5.1); Sodium 138 mEq/L (136-145); eGFR For African Americans > 60 (> 60); eGFR For Non-African Americans > 60 (> 60)
[2020-04-22] MEDS: Pantoprazole 40 MG VIAL IVP SCH ×2 (05:25→16:21)
[2020-04-22] MEDS: cefTRIAXone 1,000 MG in 0.9 % Sodium Chloride Mini Bag 100 ML IVPB SCH (05:25)
[2020-04-22] MEDS: Metoprolol XL (24 HR) Succ 25 MG TAB.ER.24H PO SCH (05:25)
[2020-04-22] MEDS: Furosemide 20 MG/2 ML VIAL IVP SCH (07:42)
[2020-04-22] MEDS: Budesonide/Formoterol 160/4.5 1 PUFF INH IH SCH ×2 (07:43→20:54)
[2020-04-22] MEDS: Tiotropium 10 INH DOSE IH SCH (07:44)
[2020-04-22] MEDS: Metoprolol XL (24 HR) Succ 50 MG TAB.ER.24H PO SCH ×2 (08:45→19:45)
[2020-04-22] MEDS: Nicotine 21 MG PATCH.TD24 TD SCH (15:07)
[2020-04-22] MEDS: QUEtiapine Fumarate 25 MG TABLET PO SCH (19:44)
[2020-04-22] MEDS: Furosemide 40 MG/4 ML VIAL IVP SCH (19:45)
[2020-04-23 04:47] LABS: Basophils % 0.3 %; Eosinophils # 0.1 K/mcL (0.0-0.6); Eosinophils % 1.6 %; Hematocrit 25.6 % (37.5-50.1); Hemoglobin 7.6 g/dL (12.9-16.9); Immature Granulocytes % 0.3 % (0-4); Immature Platelets 7.7 % (1.1-6.1); Lymphocytes # 0.7 K/mcL (0.6-4.6); Lymphocytes % 10.5 %; Mean Corpuscular HGB Conc 29.7 g/dL (31.6-35.5); Mean Corpuscular Hemoglobin 26.8 pg (28.0-33.3); Mean Corpuscular Volume 90.1 fL (83.0-100.0); Mean Platelet Volume 12.7 fL (9.4-12.4); Monocytes # 0.6 K/mcL (0.0-1.3); Monocytes % 9.2 %; Neutrophils # 5.3 K/mcL (1.6-8.9); Red Blood Count 2.84 M/mcL (4.19-5.50); Red Cell Distribution Width 15.6 % (11.5-14.5); Segmented Neutrophils % 78.1 %; White Blood Count 6.8 K/mcL (4.3-11.1)
[2020-04-23 04:48] LABS: Platelet Count 96 K/mcL (140-400)
[2020-04-23 05:02] LABS: BUN/Creatinine Ratio 25 (6-26); Blood Urea Nitrogen 29 mg/dL (8-23); Calcium 8.8 mg/dL (8.6-10.3); Carbon Dioxide 30 mEq/L (23-29); Chloride 101 mEq/L (98-107); Glucose 120 mg/dL (70-105); Osmolality,Calculated 295 (280-300); Potassium 3.4 mEq/L (3.5-5.1); Sodium 139 mEq/L (136-145); eGFR For African Americans > 60 (> 60); eGFR For Non-African Americans > 60 (> 60)
[2020-04-23] MEDS: Pantoprazole 40 MG VIAL IVP SCH (06:05)
[2020-04-23] MEDS: cefTRIAXone 1,000 MG in 0.9 % Sodium Chloride Mini Bag 100 ML IVPB SCH (06:06)
[2020-04-23] MEDS: Furosemide 40 MG/4 ML VIAL IVP SCH ×2 (07:40→20:30)
[2020-04-23] MEDS: Nicotine 21 MG PATCH.TD24 TD SCH (07:41)
[2020-04-23] MEDS: Metoprolol XL (24 HR) Succ 50 MG TAB.ER.24H PO SCH ×2 (07:41→20:30)
[2020-04-23 08:56] LABS: Magnesium 1.9 mg/dL (1.6-2.6); Phosphorous 2.2 mg/dL (2.7-4.5)
[2020-04-23] MEDS: Tiotropium 10 INH DOSE IH SCH (09:37)
[2020-04-23] MEDS: Budesonide/Formoterol 160/4.5 1 PUFF INH IH SCH ×2 (09:38→20:11)
[2020-04-23] MEDS: Doxycycline 100 MG in 0.9 % Sodium Chloride Mini Bag 100 ML IVPB SCH (16:27)
[2020-04-23] MEDS: QUEtiapine Fumarate 25 MG TABLET PO SCH (20:30)
[2020-04-23 21:29] LABS: Bilirubin,Urine Negative (Negative); Blood,Urine Negative (Negative); Clarity,Urine Clear (Clear); Color,Urine Light-Yellow (Yellow); Glucose,Urine (UA) Normal (Normal); Ketones,Urine Negative (Negative); Leukocyte Esterase,Urine Negative (Negative); Nitrite,Urine Negative (Negative); Protein,Urine Trace mg/dL (Neg-Trace); Specific Gravity,Urine 1.014 (1.010-1.025); Urobilinogen,Urine Normal (Normal)
[2020-04-24 02:58] LABS: Hematocrit 25.2 % (37.5-50.1); Hemoglobin 7.7 g/dL (12.9-16.9); Immature Granulocytes % 0.3 % (0-4); Lymphocytes % 9.5 %; Mean Corpuscular HGB Conc 30.6 g/dL (31.6-35.5); Mean Corpuscular Hemoglobin 27.2 pg (28.0-33.3); Mean Platelet Volume 12.4 fL (9.4-12.4); Monocytes % 9.5 %; Platelet Count 114 K/mcL (140-400); Red Blood Count 2.83 M/mcL (4.19-5.50); Red Cell Distribution Width 15.3 % (11.5-14.5); Segmented Neutrophils % 77.6 %; White Blood Count 5.8 K/mcL (4.3-11.1)
[2020-04-24 02:59] LABS: Basophils % 0.3 %; Eosinophils # 0.2 K/mcL (0.0-0.6); Eosinophils % 2.8 %; Lymphocytes # 0.6 K/mcL (0.6-4.6); Monocytes # 0.6 K/mcL (0.0-1.3); Neutrophils # 4.5 K/mcL (1.6-8.9)
[2020-04-24 03:19] LABS: BUN/Creatinine Ratio 22 (6-26); Blood Urea Nitrogen 25 mg/dL (8-23); Calcium 8.4 mg/dL (8.6-10.3); Carbon Dioxide 33 mEq/L (23-29); Chloride 99 mEq/L (98-107); Glucose 205 mg/dL (70-105); Osmolality,Calculated 300 (280-300); Potassium 3.2 mEq/L (3.5-5.1); Sodium 140 mEq/L (136-145); eGFR For African Americans > 60 (> 60); eGFR For Non-African Americans > 60 (> 60)
[2020-04-24] MEDS: Doxycycline 100 MG in 0.9 % Sodium Chloride Mini Bag 100 ML IVPB SCH (05:51)
[2020-04-24 07:51] VITALS: BP 128/70
[2020-04-24] MEDS: Metoprolol XL (24 HR) Succ 50 MG TAB.ER.24H PO SCH (07:52)
[2020-04-24] MEDS: Nicotine 21 MG PATCH.TD24 TD SCH (07:52)
[2020-04-24] MEDS: Furosemide 40 MG/4 ML VIAL IVP SCH (07:53)
[2020-04-24] MEDS: Budesonide/Formoterol 160/4.5 1 PUFF INH IH SCH (07:57)
[2020-04-24] MEDS: Tiotropium 10 INH DOSE IH SCH (07:58)
[2020-04-24] MEDS ORDERED: Doxycycline 100 MG CAPSULE PO SCH (21:00)
== END 2020-04-24 13:42 | disposition home or self-care (01) | DRG 377 ==
LOC: 2ANU → SUATTDRO 12:41
PROVIDERS: ADMIT Student in an Organized Health Care Education/Training Program; ATTEND Family Medicine

== ENCOUNTER 2020-05-04 22:42 | Inpatient (IN) ==
[2020-05-04] MEDS ORDERED: Naloxone 0.4 MG/ML INJ ONE (22:55)
[2020-05-04] MEDS ORDERED: NALOXONE 4 MG NS ONE (22:55)
[2020-05-04] MEDS ORDERED: Naloxone 0.4 MG/ML INJ IVP ONE (23:06)
[2020-05-04] MEDS ORDERED: 0.9 % Sodium Chloride 1,000 ML IVC ONE (23:06)
[2020-05-04] MEDS ORDERED: Isovue-370 500 ML BOTTLE IVP ONE (23:09)
[2020-05-04 23:30] LABS: Activated Partial Thrombo Time 31.6 Seconds (26.0-36.0)
[2020-05-04 23:32] LABS: INR 1.2; Prothrombin Time 13.6 Seconds (9.4-12.1)
[2020-05-04 23:45] LABS: Alanine Aminotransferase 27 Units/L (7-52); Albumin 3.6 g/dL (3.5-5.7); Albumin/Globulin Ratio 1.1 (1.1-2.2); Alkaline Phosphatase 120 Units/L (34-104); Aspartate Amino Transferase 46 Units/L (13-39); BUN/Creatinine Ratio 29 (6-26); Bilirubin,Direct 0.2 mg/dL (0.0-0.2); Bilirubin,Indirect 0.4 mg/dL (0.0-1.0); Bilirubin,Total 0.6 mg/dL (0.3-1.0); Blood Urea Nitrogen 55 mg/dL (8-23); Calcium 9.2 mg/dL (8.6-10.3); Carbon Dioxide 23 mEq/L (23-29); Chloride 103 mEq/L (98-107); Ethanol < 10 mg/dL (Less than 10); Globulin 3.2 g/dL (2.4-3.5); Glucose 169 mg/dL (70-105); Osmolality,Calculated 315 (280-300); Potassium 3.3 mEq/L (3.5-5.1); Sodium 143 mEq/L (136-145); Total Protein 6.8 g/dL (6.4-8.9); eGFR For African Americans 44 (> 60); eGFR For Non-African Americans 36 (> 60)
[2020-05-04 23:53] LABS: Basophils % 0.2 %; Eosinophils # 0.1 K/mcL (0.0-0.6); Eosinophils % 0.6 %; Hematocrit 28.3 % (37.5-50.1); Hemoglobin 8.2 g/dL (12.9-16.9); Immature Granulocytes % 0.6 % (0-4); Lymphocytes # 3.1 K/mcL (0.6-4.6); Lymphocytes % 15.9 %; Mean Corpuscular Hemoglobin 25.6 pg (28.0-33.3); Mean Corpuscular Volume 88.4 fL (83.0-100.0); Mean Platelet Volume 12.5 fL (9.4-12.4); Monocytes # 1.8 K/mcL (0.0-1.3); Neutrophils # 14.5 K/mcL (1.6-8.9); Nucleated Red Blood Cells 0.3 /100 WBC (0); Platelet Count 243 K/mcL (140-400); Red Cell Distribution Width 16.2 % (11.5-14.5); Segmented Neutrophils % 73.7 %; White Blood Count 19.6 K/mcL (4.3-11.1)
[2020-05-05] MEDS ORDERED: NALOXONE 4 MG NS ONE
[2020-05-05 00:10] LABS: Thyroid Stimulating Hormone 1.532 mcIU/mL (0.340-5.600); Troponin I 0.06 ng/mL (< 0.04)
[2020-05-05 00:20] LABS: ABG Base Excess 3 mEq/L (-2 to 3); ABG HCO3 30 mEq/L (21-27); ABG Oxygen Saturation 93 % (95-98); ABG PCO2 61 mmHg (35-45); ABG PH 7.31 pH Units (7.32-7.45); ABG PO2 75 mmHg (85-104); ABG TCO2 32 mEq/L (20-26)
[2020-05-05] MEDS ORDERED: Piperacillin/Tazobactam 3.375 GM in 0.9 % Sodium Chloride Mini Bag 100 ML IVPB ONE (00:58)
[2020-05-05] MEDS ORDERED: Vancomycin 2,000 MG/520 ML IV.SOLN IVPB ONE (00:58)
[2020-05-05] MEDS ORDERED: 0.9 % Sodium Chloride 1,000 ML IVC ONE (00:59)
[2020-05-05] MEDS ORDERED: Aspirin 325 MG TABLET PO ONE (00:59)
[2020-05-05 01:31] LABS: Amorphous Sediment,Urine Few per hpf (None-Few); Bacteria,Urine Few per hpf (None-Few); Bilirubin,Urine Negative (Negative); Blood,Urine Negative (Negative); Clarity,Urine Turbid (Clear); Color,Urine Yellow (Yellow); Glucose,Urine (UA) Normal (Normal); Hyaline Casts,Urine Moderate per lpf (None Seen); Ketones,Urine Negative (Negative); Leukocyte Esterase,Urine Negative (Negative); Mucus,Urine Few per lpf (None-Few); Nitrite,Urine Negative (Negative); PH,Urine 5.5 pH Units (5.0-8.0); Protein,Urine 100 mg/dL (Neg-Trace); Specific Gravity,Urine 1.015 (1.010-1.025); Squamous Epithelial Cell,Urine Few per hpf (None-Few); Urobilinogen,Urine Normal (Normal)
[2020-05-05 01:40] LABS: Amphetamine Screen,Urine Negative ng/mL (Cutoff=1000); Barbiturate Screen,Urine Negative ng/mL (Cutoff=200); Benzodiazepines Screen,Urine Negative ng/mL (Cutoff=200); Cannabinoid Screen,Urine Positive ng/mL (Cutoff = 50); Cocaine Screen,Urine Negative ng/mL (Cutoff= 300); Opiate Screen,Urine Negative ng/mL (Cutoff=300); Phencyclidine Screen,Urine Negative ng/mL (Cutoff=25)
[2020-05-05] MEDS ORDERED: Lactulose Oral Soln 20 GM/30 ML UDC PO ONE (03:37)
[2020-05-05] MEDS ORDERED: Acetaminophen 325 MG TABLET PO PRN (04:43)
[2020-05-05] MEDS ORDERED: Ondansetron ODT 4 MG TAB.RAPDIS SL PRN (04:43)
[2020-05-05] MEDS ORDERED: Naloxone 0.4 MG/ML INJ IVP PRN (04:43)
[2020-05-05] MEDS ORDERED: D5% in Water 1,000 ML IVC PRN (04:46)
[2020-05-05] MEDS ORDERED: Ipratropium/Albuterol Neb 3 ML IH PRN (04:46)
[2020-05-05] MEDS ORDERED: Dextrose Gel 15 GM/37.5 ML TUBE PO PRN ×2 (04:46)
[2020-05-05] MEDS ORDERED: *HR* Dextrose 50 % in Water (Vial) 50 ML VIAL IVP PRN (04:46)
[2020-05-05 06:26] LABS: Basophils % 0.1 %; Eosinophils # 0.1 K/mcL (0.0-0.6); Eosinophils % 0.5 %; Hematocrit 22.5 % (37.5-50.1); Hemoglobin 6.7 g/dL (12.9-16.9); Immature Granulocytes % 0.5 % (0-4); Lymphocytes # 0.9 K/mcL (0.6-4.6); Lymphocytes % 7.1 %; Mean Corpuscular HGB Conc 29.8 g/dL (31.6-35.5); Mean Corpuscular Hemoglobin 25.7 pg (28.0-33.3); Mean Corpuscular Volume 86.2 fL (83.0-100.0); Mean Platelet Volume 12.3 fL (9.4-12.4); Monocytes # 0.8 K/mcL (0.0-1.3); Monocytes % 6.4 %; Neutrophils # 10.8 K/mcL (1.6-8.9); Nucleated Red Blood Cells 0.2 /100 WBC (0); Platelet Count 176 K/mcL (140-400); Red Blood Count 2.61 M/mcL (4.19-5.50); Red Cell Distribution Width 16.5 % (11.5-14.5); Segmented Neutrophils % 85.4 %; White Blood Count 12.6 K/mcL (4.3-11.1)
[2020-05-05 06:47] LABS: Magnesium 2.1 mg/dL (1.6-2.6); Potassium 3.3 mEq/L (3.5-5.1)
[2020-05-05 06:49] LABS: Troponin I 0.07 ng/mL (< 0.04)
[2020-05-05 07:31] LABS: Estimated Average Glucose 160 mg/dl; Hemoglobin A1C 7.2 %
[2020-05-05] MEDS: Insulin LISPRO 300 UNITS/3 ML VIAL SUBQ SCH ×3 (08:37→19:14)
[2020-05-05] MEDS ORDERED: Ringers Solution, Lactated 1,000 ML IVC ONE ×3 (10:29→15:53)
[2020-05-05] MEDS ORDERED: Lactulose 200 GM, Sodium Chloride IRRigation 700 ML RC ONE (10:29)
[2020-05-05] MEDS ORDERED: 0.9 % Sodium Chloride 250 ML ONE (10:42)
[2020-05-05] MEDS ORDERED: *HR* Midazolam HCl 5 MG/5 ML VIAL IVP ONE (11:26)
[2020-05-05] MEDS ORDERED: *HR* Etomidate 20 MG/10 ML AMPUL IVP ONE (11:26)
[2020-05-05] MEDS: MethylPREDNISolone 40 MG/ML VIAL IVP SCH ×2 (11:51→21:10)
[2020-05-05] MEDS: cefTRIAXone 2,000 MG in Water for inj. (sterile) 20 ML IVP SCH (11:51)
[2020-05-05] MEDS: Azithromycin 500 MG in 0.9 % Sodium Chloride 250 ML IVPB SCH (11:52)
[2020-05-05] MEDS: Ipratropium/Albuterol Neb 3 ML IH SCH ×4 (12:09→23:42)
[2020-05-05 12:55] LABS: Adenovirus Not Detected (Not Detect); Bordetella Pertussis Not Detected (Not Detect); Chlamydophila pneumoniae Not Detected (Not Detect); Coronavirus 229E Not Detected (Not Detect); Coronavirus HKU1 Not Detected (Not Detect); Coronavirus NL63 Not Detected (Not Detect); Coronavirus OC43 Not Detected (Not Detect); Human Metapneumovirus Not Detected (Not Detect); Human Rhinovirus/Enterovirus Not Detected (Not Detect); Influenza A Subtype 2009 H1 Not Detected (Not Detect); Influenza B Not Detected (Not Detect); Mycoplasma pneumoniae Not Detected (Not Detect); Parainfluenza Virus 1 Not Detected (Not Detect); Parainfluenza Virus 2 Not Detected (Not Detect); Parainfluenza Virus 3 Not Detected (Not Detect); Parainfluenza Virus 4 Not Detected (Not Detect); Respiratory Syncytial Virus Not Detected (Not Detect); SARS-CoV-2 Not Detected (Not Detect)
[2020-05-05 13:24] LABS: ABG Base Excess 2 mEq/L (-2 to 3); ABG HCO3 30 mEq/L (21-27); ABG Oxygen Saturation 97 % (95-98); ABG PCO2 66 mmHg (35-45); ABG PH 7.26 pH Units (7.32-7.45); ABG PO2 112 mmHg (85-104); ABG TCO2 32 mEq/L (20-26); Blood Gas Pressure Support 12 cm H2O
[2020-05-05] MEDS ORDERED: Pantoprazole 40 MG VIAL IVP ONE ×2 (13:58→16:00)
[2020-05-05] MEDS: Albumin 25% 25gram/100mL 25 GM/100 ML IV.SOLN IVC SCH ×2 (14:28→15:40)
[2020-05-05] MEDS: Octreotide 400 MCG in 0.9 % Sodium Chloride 100 ML IVC SCH ×2 (15:34→23:03)
[2020-05-05] MEDS ORDERED: Metoclopramide 10 MG/2 ML VIAL IVP ONE (16:54)
[2020-05-05] MEDS ORDERED: Artificial Tears SOLN 15 ML BOTTLE BOTH EYES PRN (17:15)
[2020-05-05] MEDS: Norepinephrine 4 MG/254 ML IV.SOLN IVC SCH ×2 (17:29→23:02)
[2020-05-05] MEDS: FentaNYL (PF) 1,000 MCG/100 ML IV.SOLN IVC SCH (17:41)
[2020-05-05] MEDS: Pantoprazole 40 MG VIAL IVP SCH (17:45)
[2020-05-05 18:17] LABS: ABG Base Excess -1 mEq/L (-2 to 3); ABG HCO3 27 mEq/L (21-27); ABG Oxygen Saturation 95 % (95-98); ABG PCO2 64 mmHg (35-45); ABG PH 7.24 pH Units (7.32-7.45); ABG PO2 91 mmHg (85-104); ABG TCO2 29 mEq/L (20-26); Blood Gas Modality ASSIST CONTROL; Blood Gas VT 500 cc
[2020-05-05 19:14] LABS: Basophils % 0.1 %; Hematocrit 27.2 % (37.5-50.1); Hemoglobin 7.9 g/dL (12.9-16.9); Immature Granulocytes % 0.7 % (0-4); Lymphocytes # 0.9 K/mcL (0.6-4.6); Lymphocytes % 4.8 %; Mean Corpuscular Hemoglobin 25.5 pg (28.0-33.3); Mean Corpuscular Volume 87.7 fL (83.0-100.0); Monocytes # 0.7 K/mcL (0.0-1.3); Monocytes % 3.9 %; Neutrophils # 16.3 K/mcL (1.6-8.9); Nucleated Red Blood Cells 0.3 /100 WBC (0); Platelet Count 283 K/mcL (140-400); Red Cell Distribution Width 17.3 % (11.5-14.5); Segmented Neutrophils % 90.5 %
[2020-05-05] MEDS ORDERED: SODIUM CHLORIDE/NAHCO3/KCL/PEG 4,000 ML SOLN.RECON PO ONE (19:36)
[2020-05-05] MEDS ORDERED: Insulin LISPRO 300 UNITS/3 ML VIAL SUBQ SCH (21:00)
[2020-05-05] MEDS: Artificial Tears SOLN 15 ML BOTTLE BOTH EYES SCH (21:10)
[2020-05-05] MEDS: Chlorhexidine Rinse 15 ML MOUTHWASH MM SCH (21:11)
[2020-05-06 00:55] LABS: Hematocrit 26.6 % (37.5-50.1); Hemoglobin 7.9 g/dL (12.9-16.9)
[2020-05-06] MEDS ORDERED: Vancomycin 1,500 MG/265 ML IV.SOLN IVPB SCH (02:00)
[2020-05-06] MEDS: FentaNYL (PF) 1,000 MCG/100 ML IV.SOLN IVC SCH ×3 (02:24→21:59)
[2020-05-06] MEDS: Artificial Tears SOLN 15 ML BOTTLE BOTH EYES SCH ×6 (02:32→19:57)
[2020-05-06] MEDS: Norepinephrine 4 MG/254 ML IV.SOLN IVC SCH ×4 (03:00→21:01)
[2020-05-06] MEDS: Ipratropium/Albuterol Neb 3 ML IH SCH ×6 (03:55→23:13)
[2020-05-06 04:51] LABS: Basophils % 0.1 %; Hematocrit 25.8 % (37.5-50.1); Hemoglobin 7.7 g/dL (12.9-16.9); Immature Granulocytes % 0.6 % (0-4); Lymphocytes # 0.8 K/mcL (0.6-4.6); Lymphocytes % 6.2 %; Mean Corpuscular HGB Conc 29.8 g/dL (31.6-35.5); Mean Corpuscular Hemoglobin 25.8 pg (28.0-33.3); Mean Corpuscular Volume 86.6 fL (83.0-100.0); Mean Platelet Volume 11.9 fL (9.4-12.4); Monocytes # 0.5 K/mcL (0.0-1.3); Monocytes % 3.5 %; Neutrophils # 12.1 K/mcL (1.6-8.9); Nucleated Red Blood Cells 0.3 /100 WBC (0); Platelet Count 260 K/mcL (140-400); Red Blood Count 2.98 M/mcL (4.19-5.50); Red Cell Distribution Width 17.3 % (11.5-14.5); Segmented Neutrophils % 89.6 %; White Blood Count 13.5 K/mcL (4.3-11.1)
[2020-05-06 04:51] LABS: ABG Base Excess 0 mEq/L (-2 to 3); ABG HCO3 26 mEq/L (21-27); ABG Oxygen Saturation 99 % (95-98); ABG PCO2 50 mmHg (35-45); ABG PH 7.32 pH Units (7.32-7.45); ABG PO2 138 mmHg (85-104); ABG TCO2 27 mEq/L (20-26); Blood Gas Modality ASSIST CONTROL; Blood Gas VT 500 cc
[2020-05-06 04:54] LABS: VBG Ionized Calcium 1.04 mmol/L (1.15-1.35)
[2020-05-06 04:58] LABS: INR 1.1
[2020-05-06 05:01] LABS: Activated Partial Thrombo Time 29.5 Seconds (26.0-36.0)
[2020-05-06 05:13] LABS: Albumin 3.6 g/dL (3.5-5.7); Albumin/Globulin Ratio 1.4 (1.1-2.2); Bilirubin,Total 0.6 mg/dL (0.3-1.0); Calcium 8.3 mg/dL (8.6-10.3); Globulin 2.6 g/dL (2.4-3.5); Magnesium 2.2 mg/dL (1.6-2.6); Phosphorous 5.4 mg/dL (2.7-4.5); Potassium 3.6 mEq/L (3.5-5.1); Total Protein 6.2 g/dL (6.4-8.9)
[2020-05-06] MEDS: Pantoprazole 40 MG VIAL IVP SCH ×2 (05:23→18:12)
[2020-05-06] MEDS: Insulin LISPRO 300 UNITS/3 ML VIAL SUBQ SCH ×3 (06:59→18:11)
[2020-05-06] MEDS: Chlorhexidine Rinse 15 ML MOUTHWASH MM SCH ×2 (07:33→19:57)
[2020-05-06] MEDS: MethylPREDNISolone 40 MG/ML VIAL IVP SCH ×2 (07:34→19:57)
[2020-05-06] MEDS: Octreotide 400 MCG in 0.9 % Sodium Chloride 100 ML IVC SCH ×2 (08:01→17:20)
[2020-05-06] MEDS ORDERED: SODIUM CHLORIDE/NAHCO3/KCL/PEG 4,000 ML SOLN.RECON PO ONE (08:53)
[2020-05-06] MEDS: Azithromycin 500 MG in 0.9 % Sodium Chloride 250 ML IVPB SCH (11:55)
[2020-05-06] MEDS: cefTRIAXone 2,000 MG in Water for inj. (sterile) 20 ML IVP SCH (11:55)
[2020-05-06 12:14] LABS: Hematocrit 24.4 % (37.5-50.1); Hemoglobin 7.1 g/dL (12.9-16.9)
[2020-05-06] MEDS ORDERED: Vancomycin 1,750 MG in 0.9 % Sodium Chloride 250 ML IVPB SCH (13:00)
[2020-05-06] MEDS ORDERED: 0.9 % Sodium Chloride 250 ML ONE (13:36)
[2020-05-06] MEDS: Vancomycin 1,500 MG/265 ML IV.SOLN IVPB SCH (14:22)
[2020-05-06 18:17] LABS: Hematocrit 28.4 % (37.5-50.1); Hemoglobin 8.4 g/dL (12.9-16.9)
[2020-05-07] MEDS: Insulin LISPRO 300 UNITS/3 ML VIAL SUBQ SCH ×4 (00:40→17:29)
[2020-05-07] MEDS: Octreotide 400 MCG in 0.9 % Sodium Chloride 100 ML IVC SCH ×3 (00:42→17:55)
[2020-05-07] MEDS: Artificial Tears SOLN 15 ML BOTTLE BOTH EYES SCH ×6 (00:44→20:47)
[2020-05-07 01:11] LABS: Hematocrit 28.8 % (37.5-50.1); Hemoglobin 8.7 g/dL (12.9-16.9)
[2020-05-07] MEDS: Ipratropium/Albuterol Neb 3 ML IH SCH ×6 (04:20→23:59)
[2020-05-07 04:37] LABS: Basophils % 0.1 %; Hematocrit 27.6 % (37.5-50.1); Hemoglobin 8.4 g/dL (12.9-16.9); Immature Granulocytes % 0.4 % (0-4); Lymphocytes # 0.4 K/mcL (0.6-4.6); Lymphocytes % 4.2 %; Mean Corpuscular HGB Conc 30.4 g/dL (31.6-35.5); Mean Corpuscular Hemoglobin 26.3 pg (28.0-33.3); Mean Corpuscular Volume 86.5 fL (83.0-100.0); Monocytes # 0.6 K/mcL (0.0-1.3); Monocytes % 5.6 %; Neutrophils # 8.9 K/mcL (1.6-8.9); Nucleated Red Blood Cells 0.4 /100 WBC (0); Platelet Count 173 K/mcL (140-400); Red Blood Count 3.19 M/mcL (4.19-5.50); Segmented Neutrophils % 89.7 %; White Blood Count 9.9 K/mcL (4.3-11.1)
[2020-05-07 04:53] LABS: INR 1.1; Prothrombin Time 13.1 Seconds (9.4-12.1)
[2020-05-07 04:57] LABS: Magnesium 2.4 mg/dL (1.6-2.6)
[2020-05-07 05:06] LABS: ABG Base Excess 1 mEq/L (-2 to 3); ABG HCO3 27 mEq/L (21-27); ABG Oxygen Saturation 95 % (95-98); ABG PCO2 48 mmHg (35-45); ABG PH 7.35 pH Units (7.32-7.45); ABG PO2 81 mmHg (85-104); ABG TCO2 28 mEq/L (20-26); Blood Gas Modality ASSIST CONTROL; Blood Gas VT 500 cc
[2020-05-07] MEDS: Pantoprazole 40 MG VIAL IVP SCH ×2 (05:19→17:26)
[2020-05-07 06:01] LABS: Albumin 3.4 g/dL (3.5-5.7); Albumin/Globulin Ratio 1.4 (1.1-2.2); Bilirubin,Total 0.5 mg/dL (0.3-1.0); Calcium 8.4 mg/dL (8.6-10.3); Globulin 2.5 g/dL (2.4-3.5); Potassium 3.7 mEq/L (3.5-5.1); Total Protein 5.9 g/dL (6.4-8.9)
[2020-05-07] MEDS: MethylPREDNISolone 40 MG/ML VIAL IVP SCH ×2 (07:40→20:47)
[2020-05-07] MEDS: Chlorhexidine Rinse 15 ML MOUTHWASH MM SCH ×2 (07:40→20:47)
[2020-05-07] MEDS: FentaNYL (PF) 1,000 MCG/100 ML IV.SOLN IVC SCH ×2 (08:35→18:35)
[2020-05-07] MEDS: cefTRIAXone 2,000 MG in Water for inj. (sterile) 20 ML IVP SCH (10:28)
[2020-05-07] MEDS: Azithromycin 500 MG in 0.9 % Sodium Chloride 250 ML IVPB SCH (10:29)
[2020-05-07] MEDS: Norepinephrine 4 MG/254 ML IV.SOLN IVC SCH (13:32)
[2020-05-07] MEDS: Vancomycin 1,500 MG/265 ML IV.SOLN IVPB SCH (13:36)
[2020-05-07 14:19] LABS: Hematocrit 28.5 % (37.5-50.1); Hemoglobin 8.5 g/dL (12.9-16.9)
[2020-05-07] MEDS ORDERED: Melatonin 3 MG TABLET PO SCH (21:00)
[2020-05-08] MEDS: Insulin LISPRO 300 UNITS/3 ML VIAL SUBQ SCH ×5 (01:41→23:07)
[2020-05-08] MEDS: Artificial Tears SOLN 15 ML BOTTLE BOTH EYES SCH ×7 (02:04→23:06)
[2020-05-08] MEDS: FentaNYL (PF) 1,000 MCG/100 ML IV.SOLN IVC SCH ×2 (03:47→15:29)
[2020-05-08] MEDS: Octreotide 400 MCG in 0.9 % Sodium Chloride 100 ML IVC SCH (03:48)
[2020-05-08] MEDS: Ipratropium/Albuterol Neb 3 ML IH SCH ×5 (04:28→19:55)
[2020-05-08 04:48] LABS: ABG Base Excess 1 mEq/L (-2 to 3); ABG HCO3 25 mEq/L (21-27); ABG Oxygen Saturation 93 % (95-98); ABG PCO2 38 mmHg (35-45); ABG PH 7.43 pH Units (7.32-7.45); ABG PO2 65 mmHg (85-104); ABG TCO2 26 mEq/L (20-26); Blood Gas VT 500 cc
[2020-05-08] MEDS: Pantoprazole 40 MG VIAL IVP SCH ×2 (04:53→18:27)
[2020-05-08 05:50] LABS: Basophils % 0.1 %; Hematocrit 27.1 % (37.5-50.1); Hemoglobin 8.3 g/dL (12.9-16.9); Immature Granulocytes % 0.4 % (0-4); Lymphocytes # 0.3 K/mcL (0.6-4.6); Lymphocytes % 3.1 %; Mean Corpuscular HGB Conc 30.6 g/dL (31.6-35.5); Mean Corpuscular Hemoglobin 26.5 pg (28.0-33.3); Mean Corpuscular Volume 86.6 fL (83.0-100.0); Mean Platelet Volume 11.5 fL (9.4-12.4); Monocytes # 0.4 K/mcL (0.0-1.3); Neutrophils # 7.4 K/mcL (1.6-8.9); Nucleated Red Blood Cells 0.2 /100 WBC (0); Platelet Count 143 K/mcL (140-400); Red Blood Count 3.13 M/mcL (4.19-5.50); Red Cell Distribution Width 17.1 % (11.5-14.5); Segmented Neutrophils % 91.4 %; White Blood Count 8.1 K/mcL (4.3-11.1)
[2020-05-08 05:56] LABS: Calcium 8.9 mg/dL (8.6-10.3); Magnesium 2.4 mg/dL (1.6-2.6); Potassium 3.4 mEq/L (3.5-5.1)
[2020-05-08] MEDS: Chlorhexidine Rinse 15 ML MOUTHWASH MM SCH ×2 (08:16→19:36)
[2020-05-08] MEDS: MethylPREDNISolone 40 MG/ML VIAL IVP SCH ×2 (08:16→19:36)
[2020-05-08] MEDS ORDERED: Albumin 25% 25gram/100mL 25 GM/100 ML IV.SOLN IVPB ONE (08:21)
[2020-05-08] MEDS ORDERED: Furosemide 40 MG/4 ML VIAL IVP ONE (08:22)
[2020-05-08] MEDS: cefTRIAXone 2,000 MG in Water for inj. (sterile) 20 ML IVP SCH (13:37)
[2020-05-08] MEDS: Azithromycin 500 MG in 0.9 % Sodium Chloride 250 ML IVPB SCH (13:38)
[2020-05-08] MEDS: Vancomycin 1,500 MG/265 ML IV.SOLN IVPB SCH (15:25)
[2020-05-09] MEDS: Ipratropium/Albuterol Neb 3 ML IH SCH ×6 (00:08→20:13)
[2020-05-09] MEDS: FentaNYL (PF) 1,000 MCG/100 ML IV.SOLN IVC SCH ×3 (02:10→23:57)
[2020-05-09 03:35] LABS: Basophils % 0.1 %; Hematocrit 27.2 % (37.5-50.1); Hemoglobin 8.2 g/dL (12.9-16.9); Immature Granulocytes % 0.7 % (0-4); Lymphocytes # 0.2 K/mcL (0.6-4.6); Lymphocytes % 2.6 %; Mean Corpuscular HGB Conc 30.1 g/dL (31.6-35.5); Mean Corpuscular Hemoglobin 25.9 pg (28.0-33.3); Mean Corpuscular Volume 85.8 fL (83.0-100.0); Mean Platelet Volume 11.5 fL (9.4-12.4); Monocytes # 0.6 K/mcL (0.0-1.3); Monocytes % 6.8 %; Neutrophils # 7.5 K/mcL (1.6-8.9); Nucleated Red Blood Cells 0.5 /100 WBC (0); Platelet Count 123 K/mcL (140-400); Red Blood Count 3.17 M/mcL (4.19-5.50); Red Cell Distribution Width 16.8 % (11.5-14.5); Segmented Neutrophils % 89.8 %; White Blood Count 8.4 K/mcL (4.3-11.1)
[2020-05-09 03:43] LABS: Alanine Aminotransferase 22 Units/L (7-52); Albumin 3.1 g/dL (3.5-5.7); Albumin/Globulin Ratio 1.2 (1.1-2.2); Alkaline Phosphatase 65 Units/L (34-104); Aspartate Amino Transferase 48 Units/L (13-39); BUN/Creatinine Ratio 44 (6-26); Bilirubin,Total 0.7 mg/dL (0.3-1.0); Blood Urea Nitrogen 57 mg/dL (8-23); Calcium 8.9 mg/dL (8.6-10.3); Carbon Dioxide 25 mEq/L (23-29); Chloride 115 mEq/L (98-107); Globulin 2.5 g/dL (2.4-3.5); Glucose 199 mg/dL (70-105); Magnesium 2.3 mg/dL (1.6-2.6); Osmolality,Calculated 329 (280-300); Phosphorous 3.4 mg/dL (2.7-4.5); Potassium 3.6 mEq/L (3.5-5.1); Sodium 149 mEq/L (136-145); Total Protein 5.6 g/dL (6.4-8.9); eGFR For African Americans > 60 (> 60); eGFR For Non-African Americans 55 (> 60)
[2020-05-09] MEDS: Artificial Tears SOLN 15 ML BOTTLE BOTH EYES SCH ×6 (03:56→23:57)
[2020-05-09 04:13] LABS: ABG Base Excess 2 mEq/L (-2 to 3); ABG HCO3 27 mEq/L (21-27); ABG Oxygen Saturation 94 % (95-98); ABG PCO2 46 mmHg (35-45); ABG PH 7.38 pH Units (7.32-7.45); ABG PO2 72 mmHg (85-104); ABG TCO2 29 mEq/L (20-26); Blood Gas Modality ASSIST CONTROL; Blood Gas VT 500 cc
[2020-05-09] MEDS: Insulin LISPRO 300 UNITS/3 ML VIAL SUBQ SCH ×4 (05:23→23:58)
[2020-05-09] MEDS: Pantoprazole 40 MG VIAL IVP SCH ×2 (05:33→18:22)
[2020-05-09] MEDS: MethylPREDNISolone 40 MG/ML VIAL IVP SCH ×2 (07:53→20:47)
[2020-05-09] MEDS: Chlorhexidine Rinse 15 ML MOUTHWASH MM SCH ×2 (07:53→20:47)
[2020-05-09] MEDS ORDERED: Furosemide 40 MG/4 ML VIAL IVP ONE (09:44)
[2020-05-09] MEDS: Azithromycin 500 MG in 0.9 % Sodium Chloride 250 ML IVPB SCH (10:47)
[2020-05-09] MEDS: cefTRIAXone 2,000 MG in Water for inj. (sterile) 20 ML IVP SCH (10:47)
[2020-05-09] MEDS: Vancomycin 1,500 MG/265 ML IV.SOLN IVPB SCH (13:56)
[2020-05-10] MEDS: Ipratropium/Albuterol Neb 3 ML IH SCH ×7 (00:04→23:03)
[2020-05-10] MEDS: Artificial Tears SOLN 15 ML BOTTLE BOTH EYES SCH ×6 (04:04→23:46)
[2020-05-10 04:31] LABS: ABG Base Excess 4 mEq/L (-2 to 3); ABG HCO3 30 mEq/L (21-27); ABG Oxygen Saturation 93 % (95-98); ABG PCO2 49 mmHg (35-45); ABG PH 7.39 pH Units (7.32-7.45); ABG PO2 70 mmHg (85-104); ABG TCO2 31 mEq/L (20-26); Blood Gas Modality ASSIST CONTROL; Blood Gas VT 500 cc
[2020-05-10 05:54] LABS: Basophils % 0.1 %; Hematocrit 28.8 % (37.5-50.1); Hemoglobin 8.5 g/dL (12.9-16.9); Immature Granulocytes % 0.7 % (0-4); Lymphocytes # 0.4 K/mcL (0.6-4.6); Lymphocytes % 3.8 %; Mean Corpuscular HGB Conc 29.5 g/dL (31.6-35.5); Mean Corpuscular Hemoglobin 26.1 pg (28.0-33.3); Mean Corpuscular Volume 88.3 fL (83.0-100.0); Mean Platelet Volume 12.5 fL (9.4-12.4); Monocytes # 0.8 K/mcL (0.0-1.3); Monocytes % 8.5 %; Neutrophils # 8.3 K/mcL (1.6-8.9); Nucleated Red Blood Cells 0.7 /100 WBC (0); Platelet Count 119 K/mcL (140-400); Red Blood Count 3.26 M/mcL (4.19-5.50); Red Cell Distribution Width 17.1 % (11.5-14.5); Segmented Neutrophils % 86.9 %; White Blood Count 9.6 K/mcL (4.3-11.1)
[2020-05-10] MEDS: Pantoprazole 40 MG VIAL IVP SCH ×2 (05:58→18:01)
[2020-05-10 06:17] LABS: Calcium 8.8 mg/dL (8.6-10.3); Magnesium 2.3 mg/dL (1.6-2.6); Phosphorous 4.9 mg/dL (2.7-4.5); Potassium 4.1 mEq/L (3.5-5.1)
[2020-05-10] MEDS: Insulin LISPRO 300 UNITS/3 ML VIAL SUBQ SCH ×4 (06:19→23:47)
[2020-05-10] MEDS: FentaNYL (PF) 1,000 MCG/100 ML IV.SOLN IVC SCH ×2 (08:00→17:54)
[2020-05-10] MEDS: MethylPREDNISolone 40 MG/ML VIAL IVP SCH ×2 (09:12→20:54)
[2020-05-10] MEDS: Chlorhexidine Rinse 15 ML MOUTHWASH MM SCH ×2 (09:12→20:54)
[2020-05-10] MEDS: cefTRIAXone 2,000 MG in Water for inj. (sterile) 20 ML IVP SCH (10:54)
[2020-05-10] MEDS: Norepinephrine 4 MG/254 ML IV.SOLN IVC SCH (16:55)
[2020-05-11] MEDS: Ipratropium/Albuterol Neb 3 ML IH SCH ×4 (03:38→15:13)
[2020-05-11] MEDS: Artificial Tears SOLN 15 ML BOTTLE BOTH EYES SCH ×3 (04:13→11:54)
[2020-05-11 04:22] LABS: ABG Base Excess 4 mEq/L (-2 to 3); ABG HCO3 31 mEq/L (21-27); ABG Oxygen Saturation 82 % (95-98); ABG PCO2 65 mmHg (35-45); ABG PH 7.29 pH Units (7.32-7.45); ABG PO2 53 mmHg (85-104); ABG TCO2 33 mEq/L (20-26); Blood Gas Modality VC; Blood Gas VT 500 cc
[2020-05-11 04:34] LABS: ABG Base Excess 3 mEq/L (-2 to 3); ABG HCO3 31 mEq/L (21-27); ABG Oxygen Saturation 90 % (95-98); ABG PCO2 61 mmHg (35-45); ABG PH 7.31 pH Units (7.32-7.45); ABG PO2 66 mmHg (85-104); ABG TCO2 32 mEq/L (20-26); Blood Gas Modality ASSIST CONTROL; Blood Gas VT 500 cc
[2020-05-11] MEDS: FentaNYL (PF) 1,000 MCG/100 ML IV.SOLN IVC SCH (04:45)
[2020-05-11] MEDS: Pantoprazole 40 MG VIAL IVP SCH (05:34)
[2020-05-11] MEDS: Insulin LISPRO 300 UNITS/3 ML VIAL SUBQ SCH ×2 (05:34→11:54)
[2020-05-11] MEDS: MethylPREDNISolone 40 MG/ML VIAL IVP SCH (08:14)
[2020-05-11] MEDS: Chlorhexidine Rinse 15 ML MOUTHWASH MM SCH (09:12)
[2020-05-11] MEDS: cefTRIAXone 2,000 MG in Water for inj. (sterile) 20 ML IVP SCH (10:30)
[2020-05-11] MEDS ORDERED: Scopolamine Patch 1.5 MG PATCH.TD72 TD PRN (11:45)
[2020-05-11] MEDS ORDERED: Morphine Sulfate Oral CONC 10 MG/0.5 ML ORAL.SYG SL PRN (11:46)
[2020-05-11] MEDS ORDERED: *HR* LORazepam 2 MG/ML VIAL IVP PRN (11:47)
[2020-05-11 13:09] VITALS: BP 127/60
== END 2020-05-11 16:00 | disposition expired | DRG 870 ==
LOC: EMEROOARM 22:42 → 2ANU 22:42 → SUATTDRO 05-05 04:39 → 2ANU 05-05 05:34 → 2NNU 05-05 15:12 → ICNU 05-05 17:02
PROVIDERS: ADMIT Student in an Organized Health Care Education/Training Program; ATTEND Internal Medicine
PROC: ENDOCBX (2020-05-07 13:00)